=== PATIENT | male | born 1960 | race Caucasian/White ===

== ENCOUNTER → 2016-07-10 | Outpatient (CLI) | payer MEDICARE, OTHER ==
--- NOTE | 2016-07-10 17:38 | US ---
EXAMINATION TYPE: US pelvic limited DATE OF EXAM: 07/10/2016 3:35 PM COMPARISON: US in PACS CLINICAL HISTORY: 56-year-old male R35.0 Frequent Urination. Patient states frequent urination, espec ially at night. TECHNIQUE: Multiple sonographic images of the bladder were obtained. FINDINGS: No gross abnormality of the bladder. Both ureteral jets are visualized. There is normal post void cedric dder volume of 3 mL. IMPRESSION: No sonographic evidence for urinary retention.
== END | disposition home or self-care (01) ==
LOC: RADUSWWP 15:22
PROVIDERS: ATTEND Family Medicine
DX: R35.0 Frequency of micturition (principal)
CPT/HCPCS: 76857

== ENCOUNTER → 2016-10-15 | Outpatient (CLI) | payer MEDICARE, OTHER ==
--- NOTE | 2016-10-15 15:50 | US ---
EXAMINATION TYPE: US kidneys/renal and bladder DATE OF EXAM: 10/15/2016 COMPARISON: CT October 07, 2013 & US CLINICAL HISTORY: N18.9 Chronic kidney disease. EXAM MEASUREMENTS: Right Kidney: 11.2 x 5.4 x 5.2 cm Left Kidney: 11.7 x 5.6 x 5.6 cm Right Kidney: No hydronephrosis or masses seen Left Kidney: No hydronephrosis or masses seen Bladder: wnl Bilateral Jets seen: Yes There is no evidence for hydronephrosis at this point in time. No nephrolithiasis is seen. No priscila s are identified. The urinary bladder is anechoic. Bilateral ureteral jets are seen. IMPRESSION: No hydronephrosis is evident bilaterally. Unremarkable study.
== END | disposition home or self-care (01) ==
LOC: RADUSWWP 14:47
PROVIDERS: ATTEND Family Medicine
DX: N18.9 Chronic kidney disease, unspecified (principal)
CPT/HCPCS: 76770

== ENCOUNTER → 2017-10-21 | Outpatient (CLI) | payer MEDICARE, OTHER ==
[~2017-10-21] MED LIST: DOBUTamine DRIP for NUC MED 500 MG in DEXTROSE/WATER 1 250ML.BAG IV ONE
--- NOTE | 2017-10-21 13:58 | P.PN ---
Progress Note - Text Pt arrived for dobutamine stress echocardiogram. Initial echocardiogram images were very difficult to discern due to body habitus and revealed a poor EF. Recommendations were made for Lexiscan stress test instead. This was relayed to Dr. Duke's office as well as the patient. He was offered to have his Lexiscan stress test performed today however he was unable to stay for the exam. Dr. Kearney spoke to the patient about the need for Lexiscan and full echocardiogram study. He will follow up with Dr. Duke.
== END | disposition home or self-care (01) ==
LOC: RADNMMAIN 09:47
PROVIDERS: ATTEND Family Medicine
DX: R07.9 Chest pain, unspecified (principal)

== ENCOUNTER → 2017-11-06 | Outpatient (CLI) | payer MEDICARE, OTHER ==
[~2017-11-06] MED LIST changes: -DOBUTamine DRIP for NUC MED 500 MG in DEXTROSE/WATER 1 250ML.BAG IV ONE; +REGADENOSON 0.4 MG/5 ML SYRINGE IV ONE
--- NOTE | 2017-11-06 09:23 | ECHOF ---
Referral Reason:I20.0 Unstable angina R07.9 Chest pain, MEASUREMENTS -------- HEIGHT: 170.2 cm WEIGHT: 112.5 kg BP: 115/79 RVIDd: 3.7 cm (< 3.3) IVSd: 1.5 cm (0.6 - 1.1) LVIDd: 6.1 cm (3.9 - 5.3) LVPWd: 1.6 cm (0.6 - 1.1) IVSs: 1.8 cm LVIDs: 5.0 cm LVPWs: 1.9 cm LA Diam: 4.4 cm (2.7 - 3.8) LAESV Index (A-L): 31.17 ml/m Ao Diam: 3.7 cm (2.0 - 3.7) AV Cusp: 2.3 cm (1.5 - 2.6) EPSS: 2.9 cm MV E Brandon: 1.39 m/s MV DecT: 95 ms MV A Brandon: 0.39 m/s MV E/A Ratio: 3.55 MV EF SLOPE: 149.92 mm/s (70 - 150) MV EXCURSION: 1.99 cm (> 18.000) FINDINGS -------- Sinus rhythm. This was a technically adequate study. The left ventricle is mildly dilated. There is moderate concentric left ventricular hypertrophy. Overall left ventricular systolic function is severely impaired with, an EF < 20%. The right ventricle is mildly enlarged. LA is midly dilated 29-33ml/m2. The right atrium is normal in size. The aortic valve is trileaflet and appears structurally normal. Mild mitral regurgitation is present. The tricuspid valve appears structurally normal. The pulmonic valve was not well visualized. The aortic root is dilated measuring 3.7cm. Normal inferior vena cava with normal inspiratory collapse consistent with estimated right atrial pre ssure of 5 mmHg. There is no pericardial effusion. CONCLUSIONS -------- 1. Sinus rhythm. 2. This was a technically adequate study. 3. The left ventricle is mildly dilated. 4. There is moderate concentric left ventricular hypertrophy. 5. Overall left ventricular systolic function is severely impaired with, an EF < 20%. 6. The right ventricle is mildly enlarged. 7. LA is midly dilated 29-33ml/m2. 8. The right atrium is normal in size. 9. The aortic valve is trileaflet and appears structurally normal. 10. Mild mitral regurgitation is present. 11. The tricuspid valve appears structurally normal. 12. The pulmonic valve was not well visualized. 13. The aortic root is dilated measuring 3.7cm. 14. Normal inferior vena cava with normal inspiratory collapse consistent with estimated right atrial pressure of 5 mmHg. 15. There is no pericardial effusion. BARREL AND RECEIVER ALIGNER: JENA Almanzar
--- NOTE | 2017-11-06 09:46 | EST ---
EXERCISE STRESS AGE: 57 SEX: M HT: 5'7" WT: 248 PROTOCOL: Lexiscan Cardiolite Stress Test HEART RATE REST: 81 BLOOD PRESSURE REST: 149/95 MAXIMUM HEART RATE ACHIEVED: 97 MAXIMUM BLOOD PRESSURE: 176/89. INDICATION: Chest pain. CLINICAL INFORMATION: Baseline EKG shows sinus rhythm with left bundle branch block. Patient was given intravenous Lexiscan as per protocol. Did not have chest pain or diagnostic ST-segment depression. CONCLUSION: 1. Inconclusive EKG part of the stress test due to baseline EKG abnormalities. 2. Cardiolite portion of the stress test will be reported separately. MMODL / IJN: [id number] /
--- NOTE | 2017-11-06 16:53 | NM ---
EXAMINATION TYPE: NM stress lexiscan cardiolite DATE OF EXAM: 11/06/2017 COMPARISON: NONE HISTORY: Unstable angina, chest pain TECHNIQUE: After the intravenous administration of 10.6 mCi Tc 99m Sestamibi - Cardiolite resting SP ECT images acquired 45 minutes post injection. The patient received 0.4mg Lexiscan, 25.6 mCi Tc 99m Sestamibi - Stress images obtained [address] injection FINDINGS: There are large defects present including the inferior wall extending into the inferior lat eral wall as well as anterior septal wall. Significant reversibility is not identified. The ejection fraction is low at 24%. There is global hypokinesia. IMPRESSION: 1. Fixed defects along the anterior septal wall and along the inferior wall extending into the inferi or lateral wall compatible with prior infarcts. 2. Very low ejection fraction of 24%. 3. Global hypokinesia
== END | disposition home or self-care (01) ==
LOC: RADNMMAIN 07:57
PROVIDERS: ATTEND Family Medicine
DX: R94.31 Abnormal electrocardiogram [ECG] [EKG] (principal); I20.0 Unstable angina; R07.9 Chest pain, unspecified
CPT/HCPCS: 93017; 93306; 78452; A9500; J2785

== ENCOUNTER 2017-12-04 08:24 | Day surgery (SDC) | payer MEDICARE, OTHER ==
[2017-12-03 08:56] VITALS: BMI 38.8
[~2017-12-04 08:24] MED LIST changes: +ALPRAZolam 0.25 MG TAB PO PRN; +ALPRAZolam 0.5 MG TAB PO PRN; +ASPIRIN 325 MG TAB PO STA; +ATORVASTATIN 80 MG TAB PO STA; +NITROGLYCERIN SL TABS 0.4 MG TAB SUBLINGUAL PRN; -REGADENOSON 0.4 MG/5 ML SYRINGE IV ONE; +SODIUM CHLORIDE 0.9% 1,000 ML in EMPTY BAG 1 BAG IV ONE
[2017-12-04 09:12] VITALS: BP 142/92; PULSE 77; TEMP 97.7
[2017-12-04 09:41] LABS: Basophils # (A) 0.1 k/uL (0-0.2); Basophils % (A) 1 %; Eosinophils # (A) 0.4 k/uL (0-0.7); Eosinophils % (A) 3 %; HCT 49.6 % (39.0-53.0); HGB 15.5 gm/dL (13.0-17.5); Lymphocytes # (A) 1.6 k/uL (1.0-4.8); Lymphocytes % (A) 12 %; MCH 29.1 pg (25.0-35.0); MCHC 31.1 g/dL (31.0-37.0); MCV 93.4 fL (80.0-100.0); Mean Platelet Volume 6.8; Monocytes # (A) 0.7 k/uL (0-1.0); Monocytes % (A) 5 %; Neutrophils # (A) 10.3 k/uL (1.3-7.7); Neutrophils % (A) 79 %; Platelet Count 218 k/uL (150-450); RBC 5.31 m/uL (4.30-5.90); RDW 13.7 % (11.5-15.5); WBC 13.1 k/uL (3.8-10.6)
[2017-12-04 09:54] LABS: Calcium 8.9 mg/dL (8.4-10.2); Potassium 4.4 mmol/L (3.5-5.1)
== END 2017-12-04 12:40 | disposition home or self-care (01) ==
LOC: CATHCVL 08:24
PROVIDERS: ATTEND Internal Medicine Interventional Cardiology
DX: Z53.9 Procedure and treatment not carried out, unspecified reason (principal)
CPT/HCPCS: 80048; 85025

== ENCOUNTER 2017-12-05 06:18 | Day surgery (SDC) | payer MEDICARE, OTHER ==
[2017-12-05] MEDS ORDERED: HEPARIN SODIUM 1,000 UN/ML (10ML VL) ONE (07:09)
[2017-12-05] MEDS ORDERED: MIDAZOLAM 2 MG/2 ML VIAL ONE ×2 (07:09→08:13)
[2017-12-05] MEDS ORDERED: LIDOCAINE 1% INJ 10MG/ML (20 ML MDV) ONE (07:09)
[2017-12-05] MEDS ORDERED: VERAPAMIL 2.5 MG/ML 2 ML AMP ONE (07:09)
[2017-12-05 07:12] VITALS: RESP 16; TEMP 97.9
[2017-12-05] MEDS ORDERED: SODIUM CHLORIDE 0.9% 1,000 ML IV ONE (07:13)
[2017-12-05] MEDS: MIDAZOLAM 2 MG/2 ML VIAL IVP ONE ×2 (07:59→08:01)
[2017-12-05] MEDS ORDERED: LIDOCAINE 1% (PF) 10MG/ML VIAL SQ ONE (08:07)
[2017-12-05] MEDS: VERAPAMIL SYRINGE (5 MG/10 ML) INTRAARTER ONE ×2 (08:09→08:27)
[2017-12-05] MEDS ORDERED: HEPARIN SODIUM 1,000 UN/ML (10ML VL) IV ONE (08:10)
[2017-12-05] MEDS ORDERED: MIDAZOLAM 2 MG/2 ML VIAL IVP ONE (08:14)
[2017-12-05] MEDS ORDERED: IOPAMIDOL-370 125ML BTL INJ ONE (08:24)
[2017-12-05] MEDS ORDERED: RX INFO: IV CONTRAST WAS GIVEN 1 EACH MISC MISCELLANE PRN (08:35)
[2017-12-05] MEDS ORDERED: SODIUM CHLORIDE 0.9% 1,000 ML IV SCH (08:45)
--- NOTE | 2017-12-05 08:53 | LTR ---
DATE OF SERVICE: 12/05/2017 RE: Vinay Alston Dear Dr. Duke. Mr. Vinay Alston was seen in the office recently and he was experiencing chest discomfort concerning for angina and the echo shows severe cardiomyopathy with EF of 20%. Giving that, I did recommend proceeding with a coronary angiogram. The coronary angiogram showed chronic total occlusion of the right coronary artery which is known from before and patent stent in the left circumflex coronary artery. I did recommend maximized medical treatment and repeat the echocardiogram. If the EF did not improve, the patient needs to have an AICD. Thank you for allowing us to participate in his care and please do not hesitate to call if you have any question or concern. Sincerely, MD SALMA Simon / NESTOR: [id number] /
--- NOTE | 2017-12-05 09:05 | CC ---
CARDIAC CATHETERIZATION REPORT DATE OF SERVICE: 12/05/2017 PERFORMING PHYSICIAN: Torsten Kilpatrick MD. PROCEDURE PERFORMED: 1. Selective right and left coronary angiogram. 2. Left heart catheterization. 3. Left ventriculography. INDICATION: This is a pleasant 57-year-old gentleman with a past medical history significant for coronary artery disease and known chronic total occlusion of the RCA as well as stenting of the left circumflex which was performed back in 2012 and no follow up since then. Was experiencing chest discomfort as well as shortness of breath. He underwent an echocardiogram recently and that revealed severe cardiomyopathy with EF around 20%. Beside that, he underwent a myocardial perfusion imaging stress test and that showed large area of inferior infarct with юлия-infarct ischemia. Because of that, a heart catheterization was recommended. APPROACH: Right radial artery. COMPLICATION: None. LEVEL OF SEDATION: Moderate with a sedation length of 24 minutes. PROCEDURE DESCRIPTION: After obtaining an informed consent, the patient was brought to the cardiac lab systems analyst. The right radial artery was cannulated using micropuncture technique, the micropuncture wire passed easily. Then I placed a 5-Armenian sheath in the right radial artery. After that, I gave the patient 2 mg of verapamil IA and 10,000 units of heparin IV. After that, I did selective right and left coronary angiogram using JR4 and JL3.5 catheters. Left heart catheterization was performed using 5-Armenian pigtail catheter and the left ventriculography was performed using also 5-Armenian pigtail catheter. The procedure was completed without any complication. SELECTIVE CORONARY ANGIOGRAM: 1. The right coronary artery is chronically occluded in the proximal portion and fills by collaterals from the left coronary system. 2. The left main has mild disease only in the range of 20%-30%. Calcified left main, though. It bifurcates into left circumflex, ramus intermedius, and left anterior descending artery. 3. The left circumflex is a large caliber vessel. It is a nondominant vessel. The proximal circumflex appeared to have mild disease only. The mid circ is stented and the stent is patent. The circ distally became a small caliber vessel and appeared to have mild disease only. 4. The ramus intermedius is a large caliber vessel with mild disease only. 5. The LAD is a large caliber vessel as well. The LAD has mild to moderate diffuse disease only. In the proximal portion, it gives rise into a large diagonal branch which appeared to have mild disease only as well. Extensive [id number] collaterals were seen through the septal soft metals hand engraver branches. HEMODYNAMICS: The left ventricular end-diastolic pressure was 12 mmHg and mild gradient of 8 mmHg was identified across the aortic valve. Left ventriculography was performed in the RUIZ projection and using a power injection, the left ventricular systolic function is severely impaired with EF around 20% with global hypokinesia and basal inferior akinesia. CONCLUSION: 1. Chronic total occlusion of the right coronary artery which is known from before. 2. Mild disease involving the left main coronary artery. 3. Patent stent in the mid left circumflex coronary artery. 4. Mild disease involving the ramus intermedius. 5. Mild to moderate disease involving the left anterior descending artery as well as a diagonal branch of the left anterior descending artery. 6. Normal left ventricular end-diastolic pressure. 7. Severe cardiomyopathy with ejection fraction of 20%. There was global hypokinesia with basal inferior akinesia. POSTPROCEDURE MANAGEMENT: 1. Maximize medical treatment. 2. If the EF did not improve in spite of that, patient needs to have an AICD. MMODL / IJN: [id number] /
[2017-12-05 12:50] VITALS: BP 145/84; PULSE 84
== END 2017-12-05 13:43 | disposition home or self-care (01) ==
LOC: CATHCVL 06:18
PROVIDERS: ATTEND Internal Medicine Interventional Cardiology
DX: I25.10 Atherosclerotic heart disease of native coronary artery without angina pectoris (principal); I25.82 Chronic total occlusion of coronary artery; I25.5 Ischemic cardiomyopathy; I10 Essential (primary) hypertension; E78.5 Hyperlipidemia, unspecified; F17.210 Nicotine dependence, cigarettes, uncomplicated; E78.00 Pure hypercholesterolemia, unspecified; Z79.82 Long term (current) use of aspirin; Z79.899 Other long term (current) drug therapy; Z95.5 Presence of coronary angioplasty implant and graft
CPT/HCPCS: 93458; C1894; J2250; J1644; J2001; Q9967

== ENCOUNTER 2018-05-21 13:09 | Inpatient (IN) | payer MEDICARE, OTHER ==
[2018-05-21 16:26] VITALS: BMI 38.0
[2018-05-21] MEDS ORDERED: HEPARIN SODIUM,PORCINE 5,000 UNIT/ML 1 ML VIAL IV PRN (16:58)
[2018-05-21] MEDS ORDERED: NITROGLYCERIN SL TABS 0.4 MG TAB SUBLINGUAL PRN (17:03)
[2018-05-21] MEDS ORDERED: HYDROcodone/APAP 10-325MG 1 EACH TAB PO PRN (17:05)
[2018-05-21] MEDS ORDERED: ALPRAZolam 0.5 MG TAB PO PRN (17:11)
[2018-05-21] MEDS ORDERED: HEPARIN SODIUM,PORCINE 5,000 UNIT/ML 1 ML VIAL IV ONE (17:15)
[2018-05-21 17:22] LABS: Basophils # (A) 0.1 k/uL (0-0.2); Basophils % (A) 1 %; Eosinophils # (A) 0.4 k/uL (0-0.7); Eosinophils % (A) 4 %; HGB 15.8 gm/dL (13.0-17.5); Lymphocytes # (A) 2.3 k/uL (1.0-4.8); Lymphocytes % (A) 19 %; MCH 30.2 pg (25.0-35.0); MCHC 32.9 g/dL (31.0-37.0); MCV 91.7 fL (80.0-100.0); Monocytes # (A) 0.9 k/uL (0-1.0); Monocytes % (A) 7 %; Neutrophils # (A) 8.3 k/uL (1.3-7.7); Neutrophils % (A) 68 %; Platelet Count 222 k/uL (150-450); RBC 5.24 m/uL (4.30-5.90); RDW 13.6 % (11.5-15.5); WBC 12.2 k/uL (3.8-10.6)
[2018-05-21 17:30] LABS: INR 0.9 (<1.2); Partial Thromboplastin Time 24.8 sec (22.0-30.0); Prothrombin Time 10.1 sec (9.0-12.0)
[2018-05-21] MEDS: CARVEDILOL 6.25 MG TAB PO SCH (18:15)
[2018-05-21] MEDS: SODIUM CHLORIDE 0.9% 1,000 ML IV SCH (18:15)
[2018-05-21] MEDS: NITROGLYCERIN OINT 1 INCH/GM PACKET TOPICAL SCH (18:15)
[2018-05-21] MEDS: HEPARIN SOD,PORK IN 0.45% NACL 25,000 UNIT in 0.45% NACL 1 250ML.BAG IV SCH (18:19)
[2018-05-21] MEDS: ATORVASTATIN 80 MG TAB PO SCH (21:00)
[2018-05-21] MEDS: FAMOTIDINE 20 MG TAB PO SCH (21:00)
[2018-05-21] MEDS: IPRATROPIUM-ALBUTEROL 3 ML NEB INHALATION SCH (22:36)
[2018-05-21] MEDS: BUDESONIDE 0.5 MG/2 ML NEBU INHALATION SCH (22:36)
[2018-05-22] MEDS: NITROGLYCERIN OINT 1 INCH/GM PACKET TOPICAL SCH ×5 (00:40→22:23)
[2018-05-22] MEDS: IPRATROPIUM-ALBUTEROL 3 ML NEB INHALATION SCH ×4 (00:55→19:14)
[2018-05-22 06:15] LABS: Basophils # (A) 0.1 k/uL (0-0.2); Basophils % (A) 1 %; Eosinophils # (A) 0.5 k/uL (0-0.7); Eosinophils % (A) 4 %; HCT 45.8 % (39.0-53.0); HGB 15.1 gm/dL (13.0-17.5); Lymphocytes # (A) 2.8 k/uL (1.0-4.8); Lymphocytes % (A) 22 %; MCH 30.1 pg (25.0-35.0); MCHC 32.9 g/dL (31.0-37.0); MCV 91.5 fL (80.0-100.0); Mean Platelet Volume 6.8; Monocytes # (A) 0.9 k/uL (0-1.0); Monocytes % (A) 7 %; Neutrophils # (A) 8.2 k/uL (1.3-7.7); Neutrophils % (A) 65 %; Platelet Count 238 k/uL (150-450); RDW 13.5 % (11.5-15.5); WBC 12.8 k/uL (3.8-10.6)
[2018-05-22] MEDS: LOSARTAN 50 MG TAB PO SCH (06:41)
[2018-05-22] MEDS: CARVEDILOL 6.25 MG TAB PO SCH ×2 (06:41→16:29)
[2018-05-22] MEDS: SODIUM CHLORIDE 0.9% 1,000 ML IV SCH ×2 (06:41→19:27)
[2018-05-22] MEDS: FAMOTIDINE 20 MG TAB PO SCH ×2 (06:41→19:41)
[2018-05-22] MEDS: buPROPion XL 150 MG TAB.ER.24H PO SCH (06:46)
[2018-05-22] MEDS: BUDESONIDE 0.5 MG/2 ML NEBU INHALATION SCH ×2 (07:33→19:14)
[2018-05-22] MEDS ORDERED: ASPIRIN 81 MG PO SCH (09:00)
[2018-05-22] MEDS ORDERED: LIDOCAINE 1% INJ 10MG/ML (20 ML MDV) ONE (12:16)
[2018-05-22] MEDS ORDERED: IV FLUID CONTINUATION 250 ML IV ONE (12:27)
[2018-05-22] MEDS ORDERED: VERAPAMIL 2.5 MG/ML 2 ML AMP ONE (12:35)
[2018-05-22] MEDS ORDERED: LIDOCAINE 1% INJ 10MG/ML (20 ML MDV) SQ ONE (12:48)
[2018-05-22] MEDS ORDERED: BIVALIRUDIN BOLUS 250 MG/50 ML IV ONE (12:51)
[2018-05-22] MEDS ORDERED: MIDAZOLAM 2 MG/2 ML VIAL IV ONE (12:51)
[2018-05-22] MEDS ORDERED: BIVALIRUDIN 250 MG in SODIUM CHLORIDE 0.9% 40 ML IV ONE (12:53)
[2018-05-22] MEDS: NITROGLYCERIN 1000MCG/10ML SYRINGE INTRACORON ONE ×2 (13:03→13:13)
[2018-05-22] MEDS ORDERED: TICAGRELOR 90 MG TAB ONE (13:06)
[2018-05-22] MEDS ORDERED: TICAGRELOR 90 MG TAB PO ONE (13:08)
[2018-05-22] MEDS ORDERED: ZOLPIDEM 5 MG TAB PO PRN (13:17)
[2018-05-22] MEDS ORDERED: MAG HYDROX/AL HYDROX/SIMETH 30 ML CUP PO PRN (13:17)
[2018-05-22] MEDS ORDERED: IOPAMIDOL-370 100ML BTL INJ ONE (13:17)
[2018-05-22] MEDS ORDERED: ATROPINE SULFATE 0.1 MG/ML 10ML SYRINGE IV PRN (13:17)
[2018-05-22] MEDS ORDERED: NITROGLYCERIN SL TABS 0.4 MG TAB SUBLINGUAL PRN (13:17)
[2018-05-22] MEDS ORDERED: RX INFO: IV CONTRAST WAS GIVEN 1 EACH MISC MISCELLANE PRN (13:17)
[2018-05-22] MEDS ORDERED: SODIUM CHLORIDE 0.9% 1,000 ML IV SCH (13:30)
[2018-05-22 13:41] LABS: Calcium 8.5 mg/dL (8.4-10.2)
--- NOTE | 2018-05-22 14:15 | PTCA ---
PERCUTANEOUSTRANS CORORONARY ANGIOGRAPHY DATE OF SERVICE: 05/22/2018 PERFORMING PHYSICIAN: Torsten Kilpatrick MD, gameroom technician. PROCEDURE PERFORMED: Successful stenting of the mid left circumflex using 2.0 x 18 mm Adilson drug-eluting stent which was post dilated using 225 mm NC balloon with good angiographic results and reduction of stenosis from 99% to 10%. INDICATION: This is a pleasant 57-year-old gentleman with known history of coronary artery disease and prior stenting of the left circumflex coronary artery who presented to [facility] with chest discomfort and ruled in for acute non ST elevation myocardial infarction. He underwent a heart catheterization over there and that revealed critical disease involving the left circumflex. Because of that, a PCI was advised. APPROACH: Right common femoral artery. COMPLICATION: None. LEVEL OF SEDATION: Moderate with sedation length of 30 minutes. PROCEDURE DESCRIPTION: After obtaining an informed consent, the patient was brought to cardiac labor law professor. The right common femoral artery was cannulated using micropuncture technique and a micropuncture wire passed easily. Then I placed a 6-Cook Islander sheath in the right common femoral artery. After that, I did start anticoagulation using Angiomax. Subsequently I did engage the left main using an XP35 guide. A whisper wire was used to wire the left circumflex and the wire was directed to the OM to OM 1 of the left circumflex. After that I did balloon angioplasty using 2.0 x 12 mm balloon before I deployed 2.0 x 18 mm Viola drug-eluting stent where the stent was positioned under fluoroscopy guidance and deployed under its nominal pressure. The following angiogram showed some on the stented segment. Because of that, I decided to post dilate that using NC balloon which I did using 225 x 15 mm NC balloon which was inflated under 20 atmospheres for 20 seconds with the following angiogram showed good angiographic results and the procedure was completed without any complication. POSTPROCEDURE MANAGEMENT: 1. Dual anti-platelet therapy. 2. Risk factors modifications. 3. Follow up with the patient. MMODL / IJN: [id number] /
--- NOTE | 2018-05-22 14:51 | LTR ---
DATE OF SERVICE: May 22, 2018. Dear Dr. Duke: MrSabra Alston underwent successful stenting of the left circumflex here at [facility]. I want to thank you for allowing me to participate in his care and please do not hesitate to call for any questions or concerns. Sincerely, MMODL / IJN: [id number] /
--- NOTE | 2018-05-22 15:15 | PN ---
PROGRESS NOTE DATE OF SERVICE: 05/22/2018 CHIEF COMPLAINT: Unstable angina pectoris. HISTORY OF PRESENT ILLNESS: This gentleman is doing fairly well and awaits his procedure today. He is going for angioplasty. He has also been told that it is recommended that he undergo installation of defibrillator. PHYSICAL EXAM: Color is good. Vital signs normal. CHEST: Clear but breath sounds are poor due to his COPD. Cardiac exam is normal. Abdomen is soft and slightly protuberant. EXTREMITIES: Normal. IMPRESSION: 1. Unstable angina pectoris. 2. Coronary artery disease. 3. Chronic obstructive pulmonary disease. 4. Atherosclerotic cardiomyopathy. PLAN: Stenting today. Reassess afterwards as to when he will be able to be discharged. MMODL / IJN: [id number] /
[2018-05-22] MEDS: HYDROCHLOROTHIAZIDE 25 MG TAB PO SCH (16:29)
[2018-05-22] MEDS: HEPARIN SOD,PORK IN 0.45% NACL 25,000 UNIT in 0.45% NACL 1 250ML.BAG IV SCH (17:10)
--- NOTE | 2018-05-22 18:42 | HP ---
HISTORY AND PHYSICAL CHIEF COMPLAINT: Chest pain. HISTORY OF PRESENT ILLNESS: This gentleman is transferred from [facility] where he was admitted with unstable angina. He was brought here for cardiac cath and further interventional study. REVIEW OF SYSTEMS: He is presently comfortable without neurologic problems, chest pain, shortness of breath, palpitations, etc. Past medical history, family history, personal and social history are all to be found in his admitting and discharge documents from [facility] as well as admission here. PHYSICAL EXAMINATION: Blood pressure is 142/90 with a pulse of 83 and regular, respirations 35. He is afebrile. In general, he appeared to be older than the stated age. Skin was dry. Head, ears, eyes, nose, mouth, and throat were normal and the chest demonstrated decreased breath sounds with increased AP diameter. Cardiac exam demonstrates sinus rhythm. There is an S4. Abdomen is protuberant, soft, nontender without visceromegaly or masses. Bowel sounds are present. Extremities: Normal. Neurologically he is intact to the hospital. He was admitted to the hospital with diagnoses: 1. Unstable angina pectoris. 2. Coronary artery disease. 3. Nicotine abuse. 4. Chronic obstructive pulmonary disease. 5. Renal failure. PLAN: IV fluids and cardiac cath with stenting and possibly implantation of a defibrillator eventually. MMODL / IJN: [id number] /
[2018-05-22] MEDS: TICAGRELOR 90 MG TAB PO SCH (19:41)
[2018-05-22] MEDS: ATORVASTATIN 80 MG TAB PO SCH (19:41)
[2018-05-23] MEDS: IPRATROPIUM-ALBUTEROL 3 ML NEB INHALATION SCH ×2 (00:35→07:49)
[2018-05-23] MEDS: NITROGLYCERIN OINT 1 INCH/GM PACKET TOPICAL SCH (04:19)
[2018-05-23] MEDS: CARVEDILOL 6.25 MG TAB PO SCH (06:33)
[2018-05-23 07:17] LABS: Basophils # (A) 0.1 k/uL (0-0.2); Basophils % (A) 1 %; Eosinophils # (A) 0.5 k/uL (0-0.7); Eosinophils % (A) 4 %; HCT 45.9 % (39.0-53.0); HGB 15.5 gm/dL (13.0-17.5); Lymphocytes # (A) 2.2 k/uL (1.0-4.8); Lymphocytes % (A) 17 %; MCH 30.6 pg (25.0-35.0); MCHC 33.9 g/dL (31.0-37.0); MCV 90.3 fL (80.0-100.0); Mean Platelet Volume 6.9; Monocytes # (A) 1.1 k/uL (0-1.0); Monocytes % (A) 9 %; Neutrophils # (A) 9.1 k/uL (1.3-7.7); Neutrophils % (A) 69 %; Platelet Count 222 k/uL (150-450); RBC 5.08 m/uL (4.30-5.90); RDW 13.5 % (11.5-15.5); WBC 13.3 k/uL (3.8-10.6)
[2018-05-23] MEDS: BUDESONIDE 0.5 MG/2 ML NEBU INHALATION SCH (07:49)
[2018-05-23] MEDS: HYDROCHLOROTHIAZIDE 25 MG TAB PO SCH (08:25)
[2018-05-23] MEDS: LOSARTAN 50 MG TAB PO SCH (08:25)
[2018-05-23] MEDS: FAMOTIDINE 20 MG TAB PO SCH (08:26)
[2018-05-23] MEDS: buPROPion XL 150 MG TAB.ER.24H PO SCH (08:26)
[2018-05-23] MEDS: TICAGRELOR 90 MG TAB PO SCH (08:26)
[2018-05-23 08:32] VITALS: BP 131/80; PULSE 77; RESP 18; TEMP 98
[2018-05-23] MEDS: SODIUM CHLORIDE 0.9% 1,000 ML IV SCH (08:32)
[2018-05-23] MEDS ORDERED: ASPIRIN 81 MG PO SCH (09:00)
--- NOTE | 2018-05-23 10:16 | P.PN ---
Subjective Progress Note Date: 05/23/18 This is a pleasant 57-year-old gentleman with known history of coronary artery disease and prior circumflex stenting who presented to [facility] with chest discomfort, he ruled in for non-ST elevation SC. Patient underwent angioplasty with successful stenting of the mid left circumflex by Dr. Arce. He was seen and examined this morning, denied any chest pain or difficulty in breathing. Hemodynamically stable. Creatinine this morning 1.5, platelet count 222. Objective - Vital Signs Vital signs: Vital Signs Temp 98 F 05/23/18 08:28 Pulse 77 05/23/18 08:28 Resp 18 05/23/18 08:28 BP 131/80 05/23/18 08:28 Pulse Ox 96 05/23/18 08:28 Intake & Output 05/22/18 05/23/18 05/23/18 18:59 06:59 18:59 Intake Total 651 240 Output Total 600 Balance 651 -360 Weight 110.1 kg 110.5 kg Intake: IV 186 Intake, IV Titration 225 Amount Sodium Chloride 0.9% 1, 150 000 ml @ 75 mls/hr IV . [id number] JOSE Rx#:[id number] Sodium Chloride 0.9% 1, 75 000 ml @ 75 mls/hr IV . [id number] JOSE Rx#:[id number] Oral 240 240 Output: Urine 600 Other: Voiding Method Urinal Toilet Urinal # Voids 1 1 - Exam PHYSICAL EXAMINATION: GENERAL: 57-year-old gentleman in no acute distress at the time of my examination HEENT: Head is atraumatic, normocephalic. Pupils equal, round. Sclera anicteric. Conjunctiva are clear. Mucous membranes of the mouth are moist. Neck is supple. There is no elevated jugular venous pressure. No carotid bruit is heard. HEART EXAMINATION: Heart S1, S2 normal. No murmur or gallop heard. CHEST EXAMINATION: Lungs are clear to auscultation and precussion. No chest wall tenderness is noted on palpation or with deep breathing. ABDOMEN: Soft, nontender. Bowel sounds are heard. No organomegaly noted. EXTREMITIES: 2+ peripheral pulses with no evidence of peripheral edema and no calf tenderness noted. Right groin soft, no evidence of any hematoma. NEUROLOGIC patient is awake, alert and oriented 3 . . - Labs CBC & Chem 7: 02/16/19 05:36 05/23/18 05:36 Labs: Abnormal Lab Results - Last 24 Hours (Table) 05/22/18 05/23/18 05/23/18 Range/Units 12:47 05:36 05:36 WBC 13.3 H (3.8-10.6) k/uL Neutrophils # 9.1 H (1.3-7.7) k/uL Monocytes # 1.1 H (0-1.0) k/uL BUN 26 H (9-20) mg/dL Creatinine 1.47 H 1.52 H (0.66-1.25) mg/dL Assessment and Plan Plan: Assessment and plan #1 non-Q-wave SC, status post angioplasty and stenting of the circumflex artery #2 known history of coronary artery disease with prior PCI of the circumflex #3 hypertension #4 hyperlipidemia #5 COPD #6 acute on chronic renal failure #7 nicotine dependence Plan From cardiology's perspective, patient may be able to be discharged home today. We'll make him a follow-up appointment to see Dr. Arce in the office post discharge. Patient will be discharged home on aspirin 81 mg daily, Lipitor 80 mg daily, Coreg 6.25 mg twice a day, losartan 100 mg daily, Brilinta 90 mg one tablet by mouth twice a day and sublingual nitroglycerin as needed for chest pain. DNP note has been reviewed, I agree with a documented findings and plan of care. Patient was seen and examined.
--- NOTE | 2018-05-23 15:43 | DS ---
DISCHARGE SUMMARY CHIEF COMPLAINT: Chest pain. HISTORY OF PRESENT ILLNESS AND PHYSICAL EXAM: Details of this man's history and physical can be found in the initial workup. LABORATORY STUDIES: While he was in the hospital, he had laboratory studies, details of which can be found laboratory section of his chart. COURSE IN HOSPITAL: After admission , he was placed on bedrest, started on intravenous fluids and taken for angioplasty. He did well postoperatively and it was felt that he could go home on the . He will follow up in the office in several days. He is scheduled to come back at a later date for the implanted defibrillator. FINAL DIAGNOSIS: 1. Unstable angina pectoris. 2. Coronary artery disease. 3. Atherosclerotic cardiomyopathy. 4. Chronic obstructive pulmonary disease. OPERATIONS: Cardiac cath and stenting. CONSULTATIONS: Cardiology. He is improved. MMAARONL / LETAN: [id number] /
--- NOTE | 2018-05-25 16:55 | CDI ---
Documentation Clarification Form Date: 05/25/2018 3:24:00 PM From: Carmela Mcdonald Rowena Ross, Lyft Driver Hours-8:30 am & 5 pm M-F Admit Date: 05/21/2018 3:54:00 PM Patient Name: Vinay Alston Visit Number: [id number] Discharge Date: 05/23/2018 11:28:00 AM ATTENTION: The Clinical Documentation Specialists (CDI) and [facility] Coding Staff appreciate your assistance in clarifying documentation. Please respond to the clarification below the line at the bottom and electronically sign. The CDI & [facility] Coding staff will review the response and follow-up if needed. Please note: Queries are made part of the Legal Health Record. If you have any questions, please contact the author of this message via ITS. Dr. Cory Duke Non- ST elevation AR is documented in the [facility] H&P, [facility] PNs, Procedure note Patient History/Risk Factors: HTN, CAD, CMP Troponin: 7.6, 5.9, 4.5 Treatment: PTCA w/ MARISSA, Heparin In order to capture the severity of condition and necessary documentation specificity, please clarify: NSTEMI ruled in NSTEMI ruled out Unable to determine Other Condition, please specify MTDD
--- NOTE | 2018-05-25 17:07 | CDI ---
Documentation Clarification Form Date: 05/25/2018 3:58:00 PM From: Carmela Mcdonald Rowena Ross, Seat Joiner [employer] Hours-8:30 am & 5 pm M-F Admit Date: 05/21/2018 3:54:00 PM Patient Name: Vinay Alston Visit Number: [id number] Discharge Date: 05/23/2018 11:28:00 AM ATTENTION: The Clinical Documentation Specialists (CDI) and [facility] Coding Staff appreciate your assistance in clarifying documentation. Please respond to the clarification below the line at the bottom and electronically sign. The CDI & [facility] Coding staff will review the response and follow-up if needed. Please note: Queries are made part of the Legal Health Record. If you have any questions, please contact the author of this message via ITS. Dr. Cory Duke Systolic CHF is documented in the [facility] H&P History/Risk Factors: HTN, CAD, CMP Clinical Indicators: VS/Pulse OX: BNP: 1,946 Echocardiogram Results: EF 25-30% Treatment: Lasix In your professional opinion, can you please clarify the acuity of CHF if known? Systolic Heart Failure: Acute Chronic Acute on Chronic Unable to Determine Other, please specify MTDD
--- NOTE | 2018-05-27 08:07 | MISC ---
MISCELLANOUS REPORT NSTEMI is ruled in. Heart failure is chronic. MMODL / IJN: [id number] /
== END 2018-05-23 11:28 | disposition home or self-care (01) | DRG 247 ==
LOC: 3SCARD 15:54
PROVIDERS: ADMIT Family Medicine; ATTEND Family Medicine
PROC: 027034Z Dilation of Coronary Artery, One Artery with Drug-eluting Intraluminal Device, Percutaneous Approach (ICD-10-PCS; principal; 2018-05-22 12:00)
DX: I21.4 Non-ST elevation (NSTEMI) myocardial infarction (principal); N17.9 Acute kidney failure, unspecified; I13.0 Hypertensive heart and chronic kidney disease with heart failure and stage 1 through stage 4 chronic kidney disease, or unspecified chronic kidney disease; I50.22 Chronic systolic (congestive) heart failure; N18.3 Chronic kidney disease, stage 3 (moderate); J44.9 Chronic obstructive pulmonary disease, unspecified; E78.5 Hyperlipidemia, unspecified; F17.210 Nicotine dependence, cigarettes, uncomplicated; I25.5 Ischemic cardiomyopathy; G47.33 Obstructive sleep apnea (adult) (pediatric); E66.9 Obesity, unspecified; I25.10 Atherosclerotic heart disease of native coronary artery without angina pectoris; Z68.38 Body mass index [BMI] 38.0-38.9, adult; Z79.899 Other long term (current) drug therapy; Z95.5 Presence of coronary angioplasty implant and graft; Z79.82 Long term (current) use of aspirin
CPT/HCPCS: 80048; 82565; 85025; 85610; 85730; 94640

== ENCOUNTER 2018-05-24 11:23 | Emergency (ER) | payer MEDICARE, OTHER ==
[2018-05-24 11:49] VITALS: RESP 16; TEMP 97.7
[2018-05-24] MEDS ORDERED: RANOLAZINE 500 MG TAB.ER.12H PO STA (12:20)
--- NOTE | 2018-05-24 12:27 | ED ---
General Adult HPI - General Chief complaint: Recheck/Abnormal Lab/Rx Stated complaint: Medication problem Time Seen by Provider: 05/24/18 11:59 Source: patient, RN notes reviewed Mode of arrival: wheelchair Limitations: no limitations - History of Present Illness Initial comments: Patient is a pleasant 57-year-old male presenting to the emergency department with questions regarding his medication. Patient was recently in the hospital, just discharged. Patient states this morning he accidentally took one of his hydralazine that he was supposed to stop. Patient also states his Ranexa prescription he cannot find. Patient states he is supposed take 250 mg twice daily. Patient does have an appointment with his doctor tomorrow and can get it refilled at that time. Patient denies any new symptoms at this point. Patient denies any chest pain or weakness. Patient states he does get somewhat short of breath with exertion however this is chronic and unchanged. Patient states he has an ejection fraction of 20%. Patient states it is not necessary to do any blood work and he refuses at this time. Patient is agreeable to have blood pressure rechecked. Patient states he does feel fine. Patient adds the main reason that he is here is because he wants to have a visiting nurse come see him. He states this was offered to him at discharge and he regrets refusing that at that time. - Related Data Home Medications Medication Instructions Recorded Confirmed Albuterol Inhaler [Ventolin Hfa 1 - 2 puff INHALATION BID PRN 12/03/17 12/04/17 Inhaler] Aspirin [Adult Low Dose Aspirin EC] 81 mg PO QAM 12/03/17 12/05/17 Atorvastatin Calcium [Lipitor] 80 mg PO QAM 12/03/17 12/05/17 Metoprolol Tartrate 25 mg PO BID 12/03/17 12/05/17 Ranitidine HCl 150 mg PO BID 12/03/17 12/05/17 Ranolazine [Ranexa] 250 mg PO BID 12/03/17 12/05/17 Sacubitril/Valsartan [Entresto 49 1 each PO BID 12/03/17 12/05/17 mg-51 mg Tablet] buPROPion HCL [Wellbutrin XL] 150 mg PO DAILY 12/03/17 12/05/17 Previous Rx's Medication Instructions Recorded Carvedilol [Coreg] 6.25 mg PO BID-W/MEALS #60 tab 05/23/18 Nitroglycerin Sl Tabs [Nitrostat] 0.4 mg SUBLINGUAL Q5M PRN #25 tab 05/23/18 Ticagrelor [Brilinta] 90 mg PO BID #60 tab 05/23/18 Allergies Allergy/AdvReac Type Severity Reaction Status Date / Time No Known Allergies Allergy Verified 05/24/18 11:49 Review of Systems ROS Statement: Those systems with pertinent positive or pertinent negative responses have been documented in the HPI. ROS Other: All systems not noted in ROS Statement are negative. Constitutional: Denies: fever Eyes: Denies: eye pain ENT: Denies: ear pain Respiratory: Reports: as per HPI Cardiovascular: Reports: as per HPI Endocrine: Denies: polydipsia Gastrointestinal: Denies: vomiting Genitourinary: Denies: dysuria Musculoskeletal: Denies: back pain Skin: Denies: rash Neurological: Denies: weakness Past Medical History Past Medical History: Chest Pain / Angina, COPD, CVA/TIA, Hyperlipidemia, Hypertension, Myocardial Infarction ([place]), Osteoarthritis (OA), Skin Disorder, Sleep Apnea/CPAP/BIPAP Additional Past Medical History / Comment(s): TIA 2007(diff spelling words since ), no cpap used eczema, decreased kidney function in past-now resolved per pt Last Myocardial Infarction Date:: 2012 History of Any Multi-Drug Resistant Organisms: None Reported Past Surgical History: Heart Catheterization With Stent, Orthopedic Surgery Additional Past Surgical History / Comment(s): one cardiac stent, rotator cuff left shoulder, edie carpal tunnel, Past Anesthesia/Blood Transfusion Reactions: No Reported Reaction Date of Last Stent Placement:: 2012 Past Psychological History: Bipolar Smoking Status: Former smoker Past Alcohol Use History: None Reported Past Drug Use History: Marijuana - Past Family History Father Family Medical History: Cancer Additional Family Medical History / Comment(s): colon,pancreatic General Exam Limitations: no limitations General appearance: alert, in no apparent distress Head exam: Present: atraumatic Eye exam: Present: normal appearance Neck exam: Present: normal inspection Respiratory exam: Present: normal lung sounds bilaterally Cardiovascular Exam: Present: regular rate, normal rhythm GI/Abdominal exam: Present: soft. Absent: tenderness Extremities exam: Present: normal inspection. Absent: pedal edema, calf tenderness Neurological exam: Present: alert Psychiatric exam: Present: normal affect, normal mood Skin exam: Present: normal color Course Vital Signs 05/24/18 11:47 Temperature 97.7 F Pulse Rate 71 Respiratory 16 Rate Blood Pressure 144/91 O2 Sat by Pulse 97 Oximetry - Reevaluation(s) Reevaluation #1: 05/24/18 12:25 workers compensation coordinator is attempting to have somebody contact the patient regarding setting up visiting nurse. Disposition Clinical Impression: Encounter for medication adjustment Disposition: HOME SELF-CARE Condition: Stable Additional Instructions: Please follow-up to tomorrow as planned. Please also follow-up with brush and broom clipper next day or 2 for recheck. Return for chest pain, shortness of breath, dizziness, worsening symptoms or other concerns. Is patient prescribed a controlled substance at d/c from ED?: No Referrals: Cory Duke MD [Primary Care Provider] - 1-2 days Time of Disposition: 12:26
[2018-05-24 12:50] VITALS: BP 121/92; PULSE 68
== END 2018-05-24 13:44 | disposition home or self-care (01) ==
LOC: EC 11:23
DX: Z51.81 Encounter for therapeutic drug level monitoring (principal); J44.9 Chronic obstructive pulmonary disease, unspecified; E78.5 Hyperlipidemia, unspecified; I10 Essential (primary) hypertension; I25.2 Old myocardial infarction; G47.30 Sleep apnea, unspecified; F31.9 Bipolar disorder, unspecified; Z79.82 Long term (current) use of aspirin; Z79.899 Other long term (current) drug therapy; Z99.89 Dependence on other enabling machines and devices; Z87.891 Personal history of nicotine dependence; Z86.73 Personal history of transient ischemic attack (TIA), and cerebral infarction without residual deficits; Z95.5 Presence of coronary angioplasty implant and graft
CPT/HCPCS: 99283

== ENCOUNTER → 2018-07-13 | Outpatient (CLI) | payer MEDICARE, OTHER ==
[2018-07-13 16:36] LABS: Calcium 9.4 mg/dL (8.7-10.3); Magnesium 2.2 mg/dL (1.5-2.4); Potassium 4.4 mmol/L (3.5-5.5)
== END | disposition home or self-care (01) ==
LOC: LABWHC1 10:13
PROVIDERS: ATTEND Nurse Practitioner Adult Health
DX: I10 Essential (primary) hypertension (principal)
CPT/HCPCS: 36415; 80048; 83735

== ENCOUNTER → 2018-08-03 | Outpatient (CLI) | payer MEDICARE ==
[2018-08-03 16:44] LABS: Anion Gap 7.4 mmol/L (4.00-12.00); Calcium 9.2 mg/dL (8.7-10.3); Carbon Dioxide 25.6 mmol/L (21.6-31.8); Potassium 4.6 mmol/L (3.5-5.5)
== END | disposition home or self-care (01) ==
LOC: LABWHC1 10:49
PROVIDERS: ATTEND Nurse Practitioner Adult Health
DX: I10 Essential (primary) hypertension (principal)
CPT/HCPCS: 36415; 80048

== ENCOUNTER → 2018-11-19 | Outpatient (CLI) | payer MEDICARE ==
[2018-11-19 14:18] LABS: Total Volume 24 Hour,Urine 1725 mls (800-1800)
[2018-11-19 14:40] LABS: Total Protein 24 Hour,Urine 224 mg/24hr (42.0-225.0)
--- NOTE | 2018-11-20 08:25 | US ---
EXAMINATION TYPE: US kidneys/renal and bladder DATE OF EXAM: 11/19/2018 COMPARISON: NONE CLINICAL HISTORY: N18.9 CKD. CKD EXAM MEASUREMENTS: Right Kidney: 10.0 x 5.0 x 4.9 cm Left Kidney: 11.3 x 5.5 x 4.7 cm Right Kidney: No evidence of hydronephrosis or mass Left Kidney: No evidence of hydronephrosis or mass Bladder: appears wnl Bilateral Jets seen: yes There is no evidence for hydronephrosis at this point in time. No nephrolithiasis is seen. No priscila s are identified. The urinary bladder is anechoic. Bilateral ureteral jets are seen. Cortical medul sheldon differentiation is maintained. No gross cortical renal thinning. IMPRESSION: No hydronephrosis or nephrolithiasis. No current sonographic sequela of medical renal disease.
== END | disposition home or self-care (01) ==
LOC: RADUSWWP 08:37
PROVIDERS: ATTEND Family Medicine
DX: N18.9 Chronic kidney disease, unspecified (principal)
CPT/HCPCS: 76770; 81050; 82575; 84156

== ENCOUNTER → 2019-02-22 | Outpatient (CLI) | payer MEDICARE ==
--- NOTE | 2019-02-23 15:30 | CT ---
EXAMINATION TYPE: CT angio tho/abd W Run Off DATE OF EXAM: 02/22/2019 COMPARISON: CT abdomen pelvis dated 10/07/2013 HISTORY: lack of right extremity pedal pulse, left leg swelling. Femoral occlusion. CT DLP: 3313.7 mGycm Automated exposure control for dose reduction was used. TECHNIQUE: CTA of the thorax and abdomen with runoff was performed per department protocol. 3-D refor matted images of the vasculature were created on a separate workstation and submitted for review. FINDINGS: VASCULATURE: The aortic root is within normal limits measuring 3.6 cm as is the ascending thoracic aorta measuring 3.7 cm. No aneurysmal dilatation of the aortic arch and origin descending thoracic aorta as the desc ending thoracic aorta measures 2.8 cm. No dissection is seen of the thoracic aorta. The upper abdomin al aorta is within normal limits measuring 2.3 cm. There is patency of the ostia of the celiac axis, superior mesenteric artery, renal arteries, and inferior mesenteric artery. There is mild calcific an d noncalcific atheromatous plaquing of the abdominal aorta and common iliac arteries. The common leodan c arteries are within normal limits measuring 1.1 cm on the right and 1.0 cm on the left. No aneurysm al dilatation of the external iliac arteries. The femoral arteries both display moderate calcific and noncalcific atheromatous plaquing but appear patent. There is multifocal less than 50% stenosis. However on the right in the mid femoral artery ap proximately 20 cm from the medial tibial plateau there is complete occlusion of the right femoral art clay. There is reconstitution more distally towards the popliteal artery located approximately 15 cm f rom the tibial plateau. Within the patent popliteal artery there is multifocal stenosis estimated bet ween 60% and 10%. Popliteal arteries bilaterally do appear patent. There is three-vessel runoff of the proximal lower e xtremities towards the ankle joints. Flow becomes diminutive at both ankle joints. OTHER: Mild paraseptal emphysematous changes are seen of the lungs with few centrilobular blebs. No focal co nsolidation, pleural effusion or pneumothorax. No pulmonary mass is seen. Moderate to severe coronary artery calcifications. Heart is upper limits of normal size. The unenhanced images of the thorax and abdomen demonstrate no intramural hematoma. Moderate atherosclerosis. No nephrolithiasis nor radiopa que calculi in the gallbladder. No mediastinal adenopathy is seen. Thyroid gland is unremarkable. Mod erate multilevel degenerative disc disease of the spine. Mild tricompartmental arthropathy of the hip s and mild degenerative change of the femoral acetabular joints. The spleen is unremarkable as are the adrenal glands and pancreas. There are 2 small to accurately ch aracterize bilateral renal hypoattenuated lesions that are less than 1 cm. The liver is diffusely hyp oattenuated, most commonly related to hepatic steatosis and limiting evaluation for hepatic masses. N o focal hepatic mass is seen on today's examination. No intrahepatic biliary duct dilatation. No radi opaque calculus in the gallbladder. No greater than 1 cm short axis lymph node in the abdomen or pelv is. No dilated large or small bowel. Few scattered colonic diverticula without pericolonic fat strand ing. Prostate gland is heterogenous with central zone calcifications. Right inguinal ring is patulous and fat filled. IMPRESSION: 1. COMPLETE OCCLUSION OF THE RIGHT FEMORAL ARTERY NEAR THE MID DIAPHYSIS OF THE RIGHT FEMUR EXTENDING OVER A LENGTH OF APPROXIMATELY 5 CM. RECONSTITUTION OF THE RIGHT FEMORAL ARTERY DISTALLY JUST PROXIM AL TO THE POPLITEAL ARTERY . MULTIFOCAL STENOSIS OF THE RIGHT POPLITEAL ARTERY RANGING FROM 60-10%. T HREE-VESSEL RUNOFF JUST ABOVE THE ANKLE JOINT. 2. INCIDENTALLY NOTED MILD PARASEPTAL AND CENTRILOBULAR EMPHYSEMATOUS CHANGE, HEPATIC STEATOSIS, AND COLONIC DIVERTICULOSIS WITHOUT EVIDENCE OF ACUTE DIVERTICULITIS.
== END ==
LOC: RADCTMAIN 07:22
PROVIDERS: ATTEND Surgery
DX: I70.92 Chronic total occlusion of artery of the extremities (principal)
CPT/HCPCS: 75635; 71275; Q9967

== ENCOUNTER → 2019-03-05 | Outpatient (CLI) | payer MEDICARE ==
[2019-03-05 11:15] LABS: Basophils # (A) 0.1 k/uL (0-0.2); Basophils % (A) 1 %; Eosinophils # (A) 0.4 k/uL (0-0.7); Eosinophils % (A) 4 %; HCT 42.6 % (39.0-53.0); HGB 14.4 gm/dL (13.0-17.5); Lymphocytes # (A) 2.2 k/uL (1.0-4.8); Lymphocytes % (A) 22 %; MCH 31.4 pg (25.0-35.0); MCHC 33.9 g/dL (31.0-37.0); MCV 92.6 fL (80.0-100.0); Mean Platelet Volume 6.3; Monocytes # (A) 0.7 k/uL (0-1.0); Monocytes % (A) 7 %; Neutrophils # (A) 6.7 k/uL (1.3-7.7); Neutrophils % (A) 65 %; Platelet Count 252 k/uL (150-450); RDW 12.7 % (11.5-15.5); WBC 10.3 k/uL (3.8-10.6)
[2019-03-05 11:22] LABS: Potassium 4.5 mmol/L (3.5-5.1)
== END | disposition home or self-care (01) ==
LOC: LABPAT 10:41
PROVIDERS: ATTEND Surgery
DX: Z01.812 Encounter for preprocedural laboratory examination (principal); I70.213 Atherosclerosis of native arteries of extremities with intermittent claudication, bilateral legs
CPT/HCPCS: 36415; 80051; 82565; 84520; 85025

== ENCOUNTER → 2019-03-11 | Day surgery (SDC) | payer MEDICARE ==
[2019-03-09 08:46] VITALS: BMI 40.5
[~2019-03-11] MED LIST changes: +ASPIRIN 81 MG PO SCH; +ATORVASTATIN 80 MG TAB PO SCH; -ATORVASTATIN 80 MG TAB PO STA; +CARVEDILOL 6.25 MG TAB PO SCH; +FAMOTIDINE 20 MG TAB PO PRN; +HEPARIN SODIUM 1,000 UN/ML (10ML VL) IV ONE; +HYDROcodone/APAP 10-325MG 1 EACH TAB PO PRN; +HYDROmorphone 0.5 MG/0.5 ML SYRINGE IVP PRN; +IOPAMIDOL-250 100ML BTL INTRAARTER ONE; +LACTATED RINGERS 1,000 ML IV SCH; +LIDOCAINE 1% INJ 10MG/ML (20 ML MDV) SQ ONE; +MORPHINE SULFATE 4 MG/ML SYRINGE IV ONE; +PROTAMINE SULFATE 10 MG/ML 5 ML VIAL IV ONE; +SACUBITRIL/VALSARTAN 49 MG-51 MG TABLET PO SCH; +SODIUM CHLORIDE 0.45% 1,000 ML IV SCH; +TICAGRELOR 90 MG TAB PO SCH; +ZOLPIDEM 5 MG TAB PO PRN; +buPROPion XL 150 MG TAB.ER.24H PO SCH; +fentaNYL (PF) 50 MCG/ML 2 ML AMP IV ONE
[2019-03-11 06:38] VITALS: TEMP 98
[2019-03-11] MEDS: MIDAZOLAM 2 MG/2 ML VIAL IVP ONE ×2 (07:51→08:02)
--- NOTE | 2019-03-11 10:15 | P.OP ---
Date of Procedure: 03/11/19 Preoperative Diagnosis: Right superficial femoral artery occlusion. Lifestyle limiting claudication right calf. Postoperative Diagnosis: Same. Procedure(s) Performed: #1: Ultrasound-guided cannulation left femoral artery. #2: Selective catheterization right femoral artery via the contralateral approach. #3: Right femoral angiogram. #4: Balloon dilation right superficial femoral artery. #5: Stent placement right superficial femoral artery Anesthesia: MAC, local (With 2 mg of Versed and 2 mg of morphine sulfate for moderate conscious sedation) Surgeon: Chavez Magdaleno Estimated Blood Loss (ml): 25 Urine output (ml): 0 Pathology: none sent Condition: stable Disposition: same day Indications for Procedure: Patient is a 58-year-old male with a history of vascular disease who presented with lifestyle limiting claudication of the right lower extremity. The patient has had a history of cardiac disease and has undergone no significant cardiac therapy. Included in this was tobacco cessation. Overall the patient is feeling much improved however is bothered by his right calf claudication which he described as lifestyle limiting for him. Physical examination revealed femoral pulses are intact on the right warm popliteal, DP and PT pulses are absent on the right. These pulses were present on the left. Patient did undergo CT angiogram which demonstrated a total occlusion of the right superficial femoral artery at the adductor canal level. The patient was thought to be a adequate candidate for endovascular repair. The procedure, risk and benefits were discussed with the patient. We also discussed the possible need for surgical bypass. Patient wished to proceed with procedure. Description of Procedure: Patient was brought to the special procedure suite where both groins were sterilely prepped and draped in usual manner. He did receive 2 mg of Versed and 2 mg of morphine's sulfate for moderate conscious sedation purposes. Utilizing ultrasound the left femoral artery was identified. 1% Xylocaine was utilized for local anesthesia tissues overlying the left femoral artery. Through this anesthetized area and with the aid of ultrasound a multipurpose needle was utilized cannulate the artery. Once cannulated a guidewire is advanced into the artery. The needle was withdrawn and a 6-Barbadian sheath was placed. Omni Flush catheter was advanced over guidewire and utilized to cannulate the right iliac artery. The guidewire and catheter commendation were advanced down the iliac artery and the catheter was positioned at the common femoral level. The guidewire was withdrawn. Angiogram was performed of the right femoral artery. This demonstrated stenotic proximal portion of the SFA with a total occlusion of the mid SFA at the adductor canal level extending for a distance of approximately 12 cm. Multiple guidewire and catheter combination were utilized to eventually cross the lesion. Guidewire and catheter were advanced into the popliteal artery. Guidewire was withdrawn and angiogram demonstrated catheter to be within the popliteal artery. The short 6-Barbadian sheath was exchanged for an upper and over catheter and this was advanced over a guidewire into the proximal portion of the superficial femoral artery. Angiogram was performed. This demonstrated what appeared to be a dissection and possible subintimal position of the guidewire. Atherectomy was not thought to be appropriate in this setting however balloon angioplasty was thought to be a reasonable approach. As such a 5 mm balloon catheter was utilized to balloon dilate the previously occluded segment after the patient had been systemically heparinized with 6000 units of heparin. 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 It was felt that this be best treated with a covered stent. The balloon catheter was then advanced over the guidewire into the popliteal artery. The 035 guidewire was exchanged for a 018 guidewire and the balloon catheter was withdrawn. Over the guidewire a 6 mm x 250 mm Viabahn stent was selected and deployed in the area of previous stenosis. The 5 mm balloon dilation catheter was then utilized to balloon dilate the stent and completion angiogram was performed. This demonstrated no flow-limiting lesion with brisk flow through the stented area. To address the stenosis proximal to the stented area in the proximal superficial femoral artery the sheath was pulled back and a planing angiogram was performed. A 5 mm drug-eluting balloon catheter was selected and this area was balloon dilated. Completion angiogram demonstrated a very small and [id number] dissection. Less than 20% residual stenosis remained and no further intervention was felt appropriate. With the above findings noted all sheaths/catheters/guidewires were withdrawn and pressure was held at the puncture site until all evidence of bleeding ceased. Patient tolerated procedure well was taken the outpatient surgery area in satisfactory and stable condition. A palpable posterior tibial pulse was noted on the right at the completion of the procedure. Total fluoroscopy time 24.7 minutes. Total conscious sedation time 96 minutes. Total contrast volume 110 ML's of Isovue 250.
[2019-03-11 10:44] VITALS: RESP 16
[2019-03-11 12:27] VITALS: BP 166/92; PULSE 55
--- NOTE | 2019-03-12 11:33 | IR ---
EXAMINATION TYPE: IR stent intravas non coronary DATE OF EXAM: 03/11/2019 COMPARISON: NONE HISTORY: Fluoroscopy time. Fluoroscopy was provided to the referring clinician.
== END ==
LOC: CATHCVL 05:49
PROVIDERS: ATTEND Surgery
DX: I70.211 Atherosclerosis of native arteries of extremities with intermittent claudication, right leg (principal); I70.92 Chronic total occlusion of artery of the extremities; I25.10 Atherosclerotic heart disease of native coronary artery without angina pectoris; I10 Essential (primary) hypertension; Z86.73 Personal history of transient ischemic attack (TIA), and cerebral infarction without residual deficits; Z79.02 Long term (current) use of antithrombotics/antiplatelets; Z79.899 Other long term (current) drug therapy; Z79.891 Long term (current) use of opiate analgesic; Z79.82 Long term (current) use of aspirin; Z98.890 Other specified postprocedural states; Z87.891 Personal history of nicotine dependence; Z84.1 Family history of disorders of kidney and ureter; Z80.0 Family history of malignant neoplasm of digestive organs
CPT/HCPCS: 37226; C1769 ×7; C1894 ×2; C1887; C1725; C2623; C1874; J2250; J2720; J2270; J2001; J3010; J1644; Q9966

== ENCOUNTER 2020-04-04 07:23 | Day surgery (SDC) | payer MEDICARE, OTHER ==
[2020-03-28 13:55] VITALS: BMI 41.5
[~2020-04-04 07:23] MED LIST changes: -ALPRAZolam 0.25 MG TAB PO PRN; -ALPRAZolam 0.5 MG TAB PO PRN; -ASPIRIN 325 MG TAB PO STA; -ASPIRIN 81 MG PO SCH; -ATORVASTATIN 80 MG TAB PO SCH; -CARVEDILOL 6.25 MG TAB PO SCH; -FAMOTIDINE 20 MG TAB PO PRN; -HEPARIN SODIUM 1,000 UN/ML (10ML VL) IV ONE; -HYDROcodone/APAP 10-325MG 1 EACH TAB PO PRN; -HYDROmorphone 0.5 MG/0.5 ML SYRINGE IVP PRN; -IOPAMIDOL-250 100ML BTL INTRAARTER ONE; -LACTATED RINGERS 1,000 ML IV SCH; -LIDOCAINE 1% INJ 10MG/ML (20 ML MDV) SQ ONE; -MORPHINE SULFATE 4 MG/ML SYRINGE IV ONE; -NITROGLYCERIN SL TABS 0.4 MG TAB SUBLINGUAL PRN; -PROTAMINE SULFATE 10 MG/ML 5 ML VIAL IV ONE; -SACUBITRIL/VALSARTAN 49 MG-51 MG TABLET PO SCH; -SODIUM CHLORIDE 0.45% 1,000 ML IV SCH; -TICAGRELOR 90 MG TAB PO SCH; -ZOLPIDEM 5 MG TAB PO PRN; -buPROPion XL 150 MG TAB.ER.24H PO SCH; -fentaNYL (PF) 50 MCG/ML 2 ML AMP IV ONE
[2020-04-04 07:51] VITALS: TEMP 97.7
[2020-04-04] MEDS: MIDAZOLAM 2 MG/2 ML VIAL IVP ONE ×2 (10:01→10:13)
[2020-04-04] MEDS: fentaNYL (PF) 50 MCG/ML 2 ML AMP IVP ONE ×2 (10:01→10:13)
[2020-04-04] MEDS ORDERED: LIDOCAINE 1% INJ 10MG/ML (20 ML MDV) SQ ONE (10:09)
[2020-04-04] MEDS ORDERED: hydrALAZINE HCL 20 MG/ML 1 ML VIAL IVP ONE (10:29)
[2020-04-04] MEDS ORDERED: SODIUM CHLORIDE 0.9% 1,000 ML IV SCH (10:30)
--- NOTE | 2020-04-04 10:56 | AN ---
ANGIOGRAPHY REPORT DATE OF SERVICE: April 04, 2020 PERFORMING PHYSICIAN: Torsten Kilpatrick MD. PROCEDURE PERFORMED: 1. An abdominal aortogram. 2. Bilateral lower extremities runoff. INDICATION: This is a 59-year-old gentleman with peripheral arterial disease and prior intervention on the right leg, who was experiencing right leg intermittent claudication interfering with his daily activities. He underwent an arterial duplex study which revealed occluded right SFA and he was brought today to undergo an angiogram using CO2. APPROACH: Right common femoral artery. COMPLICATION: None. LEVEL OF SEDATION: Moderate with sedation length of 15 minutes. PROCEDURE: After obtaining an informed consent, the patient was brought to cardiac laboratory equipment cleaner. The right common femoral artery was cannulated using micropuncture technique and the micropuncture wire passed easily then I placed a 5-Georgian sheath. I did an aortogram with runoff using 5-Georgian pigtail catheter which was initially placed at the level of the renal arteries then it was pulled into above the bifurcation of the aorta to right and left common iliac arteries Please note that the procedure was performed using CO2 only without any contrast. FINDINGS: 1. The aorta appeared to be angiographically normal. 2. Common Iliac Arteries: Both are patent. 3. Internal Iliac Arteries: Both are patent. 4. External Iliac Arteries: Both are patent. 5. Common Femoral Arteries: Both are angiographically normal. 6. Profunda: Both are patent. 7. SFA: The right SFA is occluded from the proximal portion and reconstitutes by the Ramón canal. The left SFA appeared to have mild disease only. 8. Popliteal: Both appear to have mild disease only. 9. Below The Knee: There is 3-vessel runoff below the knee bilaterally. CONCLUSION: Occluded right SFA from the proximal portion to the Ramón canal. POSTPROCEDURE MANAGEMENT: CARD MOUNTER of the right SFA. MMODL / IJN: [id number] /
[2020-04-04] MEDS ORDERED: hydrALAZINE HCL 20 MG/ML 1 ML VIAL ONE (12:34)
[2020-04-04 12:43] VITALS: BP 155/84; PULSE 69; RESP 16
--- NOTE | 2020-04-04 14:03 | IR ---
Fluoroscopy HISTORY: Pain in right leg 2.3 minutes fluoroscopy time supplied to the referring clinician. 391 intraoperative C-arm images do cument the procedure. See dictated report from cardiology.
== END 2020-04-04 15:25 | disposition home or self-care (01) ==
LOC: CATHCVL 07:23
PROVIDERS: ATTEND Internal Medicine Interventional Cardiology
DX: I70.213 Atherosclerosis of native arteries of extremities with intermittent claudication, bilateral legs (principal); I25.5 Ischemic cardiomyopathy; I12.9 Hypertensive chronic kidney disease with stage 1 through stage 4 chronic kidney disease, or unspecified chronic kidney disease; N18.9 Chronic kidney disease, unspecified; E78.00 Pure hypercholesterolemia, unspecified; E78.5 Hyperlipidemia, unspecified; Z87.891 Personal history of nicotine dependence; Z79.82 Long term (current) use of aspirin; Z79.899 Other long term (current) drug therapy; Z95.5 Presence of coronary angioplasty implant and graft
CPT/HCPCS: 36200; 75625; 75716; C1769 ×3; J2250; J0360; J2001; J3010

== ENCOUNTER 2020-04-20 08:29 | Day surgery (SDC) | payer MEDICARE, OTHER ==
[2020-04-17 15:44] VITALS: BMI 41.3
[~2020-04-20 08:29] MED LIST changes: +LACTATED RINGERS 1,000 ML IV SCH; +LIDOCAINE 1% (10MG/ML) FOR IV START INTRADERMA PRN; -SODIUM CHLORIDE 0.9% 1,000 ML in EMPTY BAG 1 BAG IV ONE
[2020-04-20 08:50] VITALS: TEMP 97.8
[2020-04-20] MEDS ORDERED: LACTATED RINGERS 1,000 ML IV ONE (08:50)
[2020-04-20] MEDS ORDERED: PROPOFOL 10 MG/ML 20 ML VIAL IV ONE (09:39)
[2020-04-20] MEDS ORDERED: LIDOCAINE 1% INJ 10MG/ML (20 ML MDV) ONE (09:39)
--- NOTE | 2020-04-20 10:14 | P.PCN ---
Date of Procedure: 04/20/20 Description of Procedure: Brief history: Patient is a pleasant scheduled for an elective upper endoscopy as well as colonoscopy as a part of evaluation of epigastric abdominal pain and family history of colon cancer. Patient reports pain in his epigastric region of his abdomen. Currently the patient is on Protonix therapy. He has a prior history of alcohol abuse for which he is currently abstinent. Last colonoscopy in 7-8 years ago per patient report. Family history of colon cancer in his father in his 50s. Procedure performed: Esophagogastroduodenoscopy with biopsy Colonoscopy with polypectomy Estimated blood loss: Minimal. Preoperative diagnosis: Epigastric abdominal pain, family history of colon cancer, patient reports last colonoscopy 7-8 years ago Anesthesia: MAC Procedure: After informed consent was obtained from the patient was brought into the endoscopy unit and IV sedation was administered by anesthesia under continuous monitoring. Initially upper endoscopy was done. The Olympus GF 190 video endoscope was inserted into the mouth and esophagus intubated without any difficulty and was gradually advanced into the stomach and duodenum and carefully examined. The bulb and second part of the duodenum appeared normal, except for some erythema and superficial erosions that are suggestive of moderate duodenitis with biopsies taken. The scope was then withdrawn into the stomach adequately insufflated with air and upon careful examination the antrum and body, cardia and fundus appeared normal, except for some linear erythema and superficial erosions suggestive of moderate gastritis with biopsies of the antrum and body taken. The scope was then withdrawn into the esophagus. The GE junction was located at 42 cm to the incisors. It appeared regular with no erythema erosions or ulcerations or varices noted . Rest of the esophagus appeared normal. Patient tolerated the procedure well. At this time the patient continued to remain sedation. Initial digital rectal examination was normal. Olympus CF 190 video colonoscope was then inserted into the rectum and gradually advanced to the cecum without any difficulty. Careful examination was performed as the scope was gradually being withdrawn. The prep was excellent. The cecum, ascending colon, transverse colon, descending colon, sigmoid colon and rectum appeared normal. 3 diminutive polyps measuring 1-2 mm in size removed from the sigmoid colon and rectum 2. Retroflexion was performed in the rectum and no lesions were noted, internal hemorrhoids. Patient tolerated the procedure well. Impression: 1. Moderate gastritis. Moderate duodenitis. Biopsies of the antrum and body and the duodenum. 2. 3 diminutive polyps removed with cold forcep polypectomy from the sigmoid colon and rectum 2. Internal and external hemorrhoids. Recommendations: Findings of this examination were discussed with the patient. Okay to resume diet. Okay to resume medications. Await pathology from polypectomies and biopsies. Follow up in the GI clinic as scheduled. Repeat colonoscopy in 5 years for family history of colon cancer personal history of colon polyps.
[2020-04-20 10:22] VITALS: PULSE 76
[2020-04-20 10:40] VITALS: BP 124/75; RESP 16
== END 2020-04-20 11:04 | disposition home or self-care (01) ==
LOC: ORWHC2ENDO 08:29
PROVIDERS: ATTEND Internal Medicine
DX: Z12.11 Encounter for screening for malignant neoplasm of colon (principal); K63.5 Polyp of colon; K63.89 Other specified diseases of intestine; K62.1 Rectal polyp; K64.8 Other hemorrhoids; K64.4 Residual hemorrhoidal skin tags; K29.50 Unspecified chronic gastritis without bleeding; K31.9 Disease of stomach and duodenum, unspecified; K29.80 Duodenitis without bleeding; Z80.0 Family history of malignant neoplasm of digestive organs; I25.2 Old myocardial infarction; I25.10 Atherosclerotic heart disease of native coronary artery without angina pectoris; I10 Essential (primary) hypertension; E78.5 Hyperlipidemia, unspecified; J44.9 Chronic obstructive pulmonary disease, unspecified; G47.33 Obstructive sleep apnea (adult) (pediatric); Z98.890 Other specified postprocedural states; Z79.899 Other long term (current) drug therapy; Z79.891 Long term (current) use of opiate analgesic; Z79.82 Long term (current) use of aspirin; Z87.39 Personal history of other diseases of the musculoskeletal system and connective tissue; Z86.69 Personal history of other diseases of the nervous system and sense organs; Z95.5 Presence of coronary angioplasty implant and graft; Z86.73 Personal history of transient ischemic attack (TIA), and cerebral infarction without residual deficits
CPT/HCPCS: 45380; 43239; J2001; J2704; 88305

== ENCOUNTER 2020-04-26 13:25 | Inpatient (IN) | payer MEDICARE, OTHER ==
[2020-04-21 08:47] VITALS: BMI 41.0
[~2020-04-26 13:25] MED LIST changes: +ALPRAZolam 0.25 MG TAB PO PRN; +ASPIRIN 325 MG TAB PO PRN; -LACTATED RINGERS 1,000 ML IV SCH; -LIDOCAINE 1% (10MG/ML) FOR IV START INTRADERMA PRN; +SODIUM CHLORIDE 0.9% 1,000 ML in EMPTY BAG 1 BAG IV ONE
[2020-04-26] MEDS ORDERED: SODIUM CHLORIDE 0.9% 1,000 ML IV ONE (14:00)
[2020-04-26 14:24] LABS: Basophils # (A) 0.2 k/uL (0-0.2); Basophils % (A) 2 %; Eosinophils # (A) 0.6 k/uL (0-0.7); Eosinophils % (A) 5 %; HCT 44.6 % (39.0-53.0); HGB 15.1 gm/dL (13.0-17.5); Lymphocytes # (A) 2.2 k/uL (1.0-4.8); Lymphocytes % (A) 20 %; MCH 30.6 pg (25.0-35.0); MCHC 33.9 g/dL (31.0-37.0); MCV 90.1 fL (80.0-100.0); Monocytes # (A) 0.8 k/uL (0-1.0); Monocytes % (A) 7 %; Neutrophils # (A) 7.5 k/uL (1.3-7.7); Neutrophils % (A) 66 %; Platelet Count 234 k/uL (150-450); RBC 4.95 m/uL (4.30-5.90); RDW 13.3 % (11.5-15.5); WBC 11.4 k/uL (3.8-10.6)
[2020-04-26 14:36] LABS: Calcium 9.2 mg/dL (8.4-10.2); Potassium 4.7 mmol/L (3.5-5.1)
[2020-04-26] MEDS ORDERED: MIDAZOLAM 2 MG/2 ML VIAL IV ONE ×2 (17:00→18:27)
[2020-04-26] MEDS ORDERED: HYDROmorphone 0.5 MG/0.5 ML SYRINGE IVP ONE ×2 (17:00→18:00)
[2020-04-26] MEDS ORDERED: LIDOCAINE 1% INJ 10MG/ML (20 ML MDV) SQ ONE (17:04)
[2020-04-26] MEDS ORDERED: hydrALAZINE HCL 20 MG/ML 1 ML VIAL IV ONE (17:46)
[2020-04-26] MEDS ORDERED: SODIUM CHLORIDE 0.9% 500 ML 500 ML with niCARdipine 6.25 MG, NITROGLYCERIN-D5W PMX 0.05... IV ONE ×4 (17:50)
[2020-04-26] MEDS: fentaNYL (PF) 50 MCG/ML 2 ML AMP IV ONE ×2 (18:27→19:05)
[2020-04-26] MEDS ORDERED: ALTEPLASE 10 MG in SODIUM CHLORIDE 0.9% 100 ML IA ONE (19:08)
[2020-04-26] MEDS ORDERED: ALTEPLASE BOLUS 1 MG/1 ML SYRINGE IV STA (19:09)
[2020-04-26] MEDS ORDERED: NITROGLYCERIN SL TABS 0.4 MG TAB SUBLINGUAL PRN (19:22)
[2020-04-26] MEDS ORDERED: SODIUM CHLORIDE 0.9% 1,000 ML in EMPTY BAG 1 BAG IV SCH (19:30)
[2020-04-26] MEDS ORDERED: CLOPIDOGREL 75 MG TAB PO ONE (19:43)
[2020-04-26] MEDS ORDERED: IOPAMIDOL-250 100ML BTL INTRAARTER ONE (19:43)
[2020-04-26 19:57] LABS: Glucose,Whole Blood 125 mg/dL (75-99)
[2020-04-26] MEDS ORDERED: ONDANSETRON 4 MG/2 ML VIAL IVP PRN (21:17)
[2020-04-26] MEDS: ATORVASTATIN 80 MG TAB PO SCH (21:41)
--- NOTE | 2020-04-26 22:29 | PCN ---
PROCEDURE NOTE PERCUTANEOUS PERIPHERAL INTERVENTION: DATE OF SERVICE: 04/26/2020 PERFORMING PHYSICIAN: Torsten Kilpatrick M.D. PROCEDURES PERFORMED: 1. Atherectomy of the right SFA using the HawkOne device. 2. Successful stenting of the right SFA using a 7 x 80 mm Zilver PTX drug-coated stent with an excellent angiographic result. 3. Intravascular ultrasound (IVUS) of the right SFA and right common femoral artery. 4. Successful placement of infusion catheter in the right SFA. 5. Selective right posterior tibial angiogram. INDICATION: This is a 59-year-old gentleman with peripheral arterial disease and prior percutaneous intervention on the right SFA using Viabahn stent. He was experiencing right leg intermittent claudication interfering with his daily activities. He underwent an angiogram that revealed occluded right SFA which seems to be in-stent occlusion. He was brought today to undergo an intervention. APPROACH: Left common femoral artery and right posterior tibial artery. COMPLICATIONS: None. LEVEL OF SEDATION: Moderate, with sedation length of 132 minutes. PROCEDURE DESCRIPTION: After obtaining informed consent, the patient was brought to the cardiac earthmoving labourer. The left common femoral artery was cannulated using micropuncture technique. The micropuncture wire passed easily. Then I placed a 6-Occitan 70 cm sheath at the left common femoral artery. After that I did select the right profunda using an 0.035 stiff Glidewire with the back- up support of 5-Occitan RIM catheter. After that I did advance the long sheath from the left groin over the RIM catheter and 0.[address] way to the right common femoral artery. Attempting crossing the BAND SAW FILER using the 0.014 wire and 0.018 wire and 0.035 wire was successful in antegrade technique. After multiple attempts, I decided to cross it using retrograde technique after accessing the right posterior tibial artery. I did access the right posterior tibial artery using micropuncture technique under ultrasound guidance. The micropuncture wire passed easily. Then I placed a slender 5/6- Occitan sheath in the right posterior tibial artery. Subsequently, I did selective right posterior tibial artery angiogram. That showed 2- vessel runoff. After that I was able to cross the chronic total occlusion of the right SFA in retrograde technique from the right posterior tibial artery sheath. After that I did intravascular ultrasound to prove that I was in the true lumen. After that I did atherectomy using the HawkOne device. Balloon angioplasty was achieved using 5 mm balloon with inadequate angiographic results. Subsequently I placed a 7 x 80 mm Zilver PTX drug-coated stent in the proximal right SFA right from the takeoff from the common femoral artery. The stent was positioned under fluoroscopic guidance and deployed under fluoroscopic guidance. The stent was post- dilated using a 6 mm balloon. After that, there was a significant amount of clot identified in the stented segment from before. I decided to place an infusion catheter. I snared the wire from down all the way to the left common femoral artery and then after that I placed an infusion catheter, and the patient will be infused with tPA overnight. He will be brought tomorrow for a second look. The procedure was completed without any complication. POST-PROCEDURE MANAGEMENT: 1. Bring the patient for second look tomorrow. 2. Dual anti-platelet therapy. 3. Follow up with the patient. MMAARONL / LETAN: [id number] /
[2020-04-27] MEDS: HYDROcodone/APAP 10-325MG 1 EACH TAB PO PRN ×2 (00:33→09:19)
[2020-04-27] MEDS: carvediloL 12.5 MG TAB PO SCH ×2 (06:49→17:25)
[2020-04-27 07:28] LABS: HCT 42.1 % (39.0-53.0); HGB 14.2 gm/dL (13.0-17.5); MCH 30.8 pg (25.0-35.0); MCHC 33.7 g/dL (31.0-37.0); MCV 91.3 fL (80.0-100.0); Mean Platelet Volume 6.7; Platelet Count 165 k/uL (150-450); RBC 4.61 m/uL (4.30-5.90); RDW 13.3 % (11.5-15.5); WBC 16.2 k/uL (3.8-10.6)
[2020-04-27 07:45] LABS: Calcium 8.6 mg/dL (8.4-10.2); Potassium 4.3 mmol/L (3.5-5.1)
[2020-04-27] MEDS: PANTOPRAZOLE 40 MG TABLET PO SCH (08:33)
[2020-04-27] MEDS: buPROPion XL 150 MG TAB.ER.24H PO SCH (08:33)
[2020-04-27] MEDS: SACUBITRIL/VALSARTAN 24 MG-26 MG TABLET PO SCH (08:33)
[2020-04-27] MEDS: ASPIRIN 325 MG TAB PO SCH (08:33)
--- NOTE | 2020-04-27 10:21 | IR ---
EXAMINATION TYPE: IR radio division captain femoral popliteal DATE OF EXAM: 04/26/2020 COMPARISON: NONE HISTORY: Fluoroscopy time. Fluoroscopy was provided to the referring clinician.
[2020-04-27] MEDS ORDERED: IV FLUID CONTINUATION 1,000 ML IV ONE (10:50)
[2020-04-27] MEDS ORDERED: HYDROmorphone 1 MG/ML 1 ML SYRINGE IVP ONE (10:51)
[2020-04-27] MEDS ORDERED: MIDAZOLAM 2 MG/2 ML VIAL IV ONE (10:59)
[2020-04-27] MEDS: fentaNYL (PF) 50 MCG/ML 2 ML AMP IV ONE ×4 (10:59→11:33)
[2020-04-27] MEDS ORDERED: niCARdipine Syringe (1,000 mcg/10 mL) INTRACORON ONE (11:24)
[2020-04-27] MEDS ORDERED: NITROGLYCERIN 1000MCG/10ML SYRINGE INTRACORON ONE (11:24)
[2020-04-27] MEDS ORDERED: IOPAMIDOL-370 100ML BTL INJ ONE (11:33)
[2020-04-27] MEDS ORDERED: CLOPIDOGREL 75 MG TAB PO ONE (11:33)
[2020-04-27] MEDS ORDERED: CLOPIDOGREL 75 MG TAB PO SCH (12:00)
[2020-04-27] MEDS ORDERED: SODIUM CHLORIDE 0.9% 1,000 ML in EMPTY BAG 1 BAG IV SCH (12:00)
--- NOTE | 2020-04-27 12:21 | IR ---
EXAMINATION TYPE: IR ferryboat captain femoral popliteal DATE OF EXAM: 04/27/2020 COMPARISON: NONE HISTORY: Fluoroscopy time. Fluoroscopy was provided to the referring clinician.
--- NOTE | 2020-04-27 14:10 | LTR ---
April 27, 2020 Re: Vinay Alston Dear Dr. Duke: MrSabra Alston underwent successful angioplasty of the right SFA. I want to thank you for allowing me to participate in his care and please do not hesitate to call if you have any question or concerns. Sincerely, MD SALMA Simon / NESTOR: [phone] /
--- NOTE | 2020-04-27 19:00 | PN ---
PROGRESS NOTE CHIEF COMPLAINT: ASCVD. HISTORY OF PRESENT ILLNESS: This gentleman is doing fairly well, but he is having quite a bit of discomfort in the groin area. He has had no palpitations, fever, chills, chest pain, etc. PHYSICAL EXAMINATION: His vital signs are normal. Chest is clear. Cardiac exam is normal. The abdomen is protuberant and soft. Lower extremities both are warm to palpation and have good capillary fill. IMPRESSION: 1. Peripheral vascular occlusive disease. 2. Atherosclerotic cardiovascular disease. 3. Coronary artery disease. 4. Chronic obstructive pulmonary disease. 5. Hypertension. PLAN: Continue to follow with Cardiology. MMODL / IJN: [id number] /
[2020-04-27] MEDS: ATORVASTATIN 80 MG TAB PO SCH (19:51)
--- NOTE | 2020-04-27 20:17 | CONS ---
CONSULTATION DATE OF SERVICE: 04/26/2020 CHIEF COMPLAINT: Peripheral vascular occlusive disease. HISTORY OF PRESENT ILLNESS: This gentleman was brought in for an elective procedure on his right lower extremity. He has extensive atherosclerotic cardiovascular disease with essential hypertension, coronary artery disease, and he continues to smoke heavily. REVIEW OF SYSTEMS: He is having some discomfort in that right leg. He has had no headaches, recent neurologic problems, change in vision or hearing, chest pain, shortness of breath, abdominal pain, nausea, vomiting, hematemesis, melena, hematochezia, jaundice, renal failure, etc. Past medical history, family history, and personal and social histories can all be found in his admitting summary and past medical records. PHYSICAL EXAMINATION: Blood pressure is 130/90 with a pulse of 71, respirations of 35, and he is afebrile. In general he appeared to be overweight. Skin was dry and lymph nodes were not enlarged. Head, ears, eyes, nose, mouth and throat were normal. Neck veins were not distended. Chest was clear to auscultation and percussion. Cardiac exam demonstrated sinus tachycardia. The abdomen was soft and nontender. Extremities were unremarkable except for absent pulses in both lower extremities. Neurologically he was intact. IMPRESSION: 1. Peripheral vascular occlusive disease affecting the right lower extremity. 2. Generalized atherosclerotic cardiovascular disease. 3. Essential hypertension. 4. Coronary artery disease. 5. Chronic obstructive pulmonary disease. RECOMMENDATIONS: None at this time. Thank you. Respectfully, Cory Duke II, M.D. SALMA / NESTOR: [phone] /
--- NOTE | 2020-04-27 20:22 | PCN ---
PROCEDURE NOTE DATE OF SERVICE: 04/27/2020 PERFORMING PHYSICIAN: Torsten Kilpatrick M.D. PROCEDURES PERFORMED: 1. Second-check angiogram after tPA infusion overnight via catheter in the right SFA. 2. Successful balloon angioplasty of the right popliteal and right SFA using 6 x 150 mm drug-coated balloon with an excellent angiographic result. 3. Left common femoral artery angiogram. INDICATION: This is a 59-year-old gentleman with peripheral arterial disease who underwent in the past successful balloon angioplasty and stenting of the right SFA. He was experiencing recently right lower extremity intermittent claudication and underwent an angiogram yesterday that revealed a large clot in the right SFA. An infusion catheter was placed and he was dripped overnight with tPA and was brought today for a second look. APPROACH: Left common femoral artery. COMPLICATIONS: None. LEVEL OF SEDATION: Moderate, with sedation length of 37 minutes. PROCEDURE DESCRIPTION: Please refer to my procedure note from yesterday. I advanced an 0.035 wire through the infusion catheter all the way to the right popliteal. The infusion catheter after that was pulled out. I did an angiogram which revealed a tight lesion in the distal segment of the right SFA as well as a tight lesion in the right popliteal. Balloon angioplasty was achieved using 6 x 150 mm drug-coated balloon which was an Impact balloon which was inflated under 8 atmospheres for 3 minutes. The following angiogram showed good angiographic results and the procedure was completed without any complication. After that I did exchange my long sheath for a short sheath using 0.035 Glidewire. Then I did selective left common femoral artery angiogram before I deployed the Perclose device. POST-PROCEDURE MANAGEMENT: 1. Dual anti-platelet therapy and possibly anticoagulation down the line. 2. Risk factor modifications. 3. Follow up with the patient. Please note that the procedure was performed without anticoagulation because ACT was high and the patient was dripped with tPA overnight. MMODL / IJN: [id number] /
[2020-04-28 04:49] LABS: Basophils # (A) 0.1 k/uL (0-0.2); Basophils % (A) 1 %; Eosinophils # (A) 0.4 k/uL (0-0.7); Eosinophils % (A) 3 %; HGB 12.9 gm/dL (13.0-17.5); Lymphocytes # (A) 1.4 k/uL (1.0-4.8); Lymphocytes % (A) 9 %; MCH 30.9 pg (25.0-35.0); MCV 90.9 fL (80.0-100.0); Mean Platelet Volume 6.8; Monocytes # (A) 1.5 k/uL (0-1.0); Monocytes % (A) 10 %; Neutrophils # (A) 11.8 k/uL (1.3-7.7); Neutrophils % (A) 76 %; Platelet Count 127 k/uL (150-450); RBC 4.18 m/uL (4.30-5.90); RDW 13.2 % (11.5-15.5); WBC 15.5 k/uL (3.8-10.6)
[2020-04-28 05:16] LABS: Calcium 8.4 mg/dL (8.4-10.2)
[2020-04-28 05:48] LABS: Potassium 4.3 mmol/L (3.5-5.1)
[2020-04-28] MEDS: carvediloL 12.5 MG TAB PO SCH (06:52)
[2020-04-28] MEDS: ASPIRIN 325 MG TAB PO SCH (08:08)
[2020-04-28] MEDS: PANTOPRAZOLE 40 MG TABLET PO SCH (08:08)
[2020-04-28] MEDS: SACUBITRIL/VALSARTAN 24 MG-26 MG TABLET PO SCH (08:09)
[2020-04-28] MEDS: buPROPion XL 150 MG TAB.ER.24H PO SCH (08:09)
[2020-04-28 08:33] VITALS: TEMP 98.1
[2020-04-28] MEDS ORDERED: CLOPIDOGREL 75 MG TAB PO SCH (09:00)
[2020-04-28 11:43] VITALS: BP 111/76; PULSE 76; RESP 13
--- NOTE | 2020-04-28 13:31 | DS ---
DISCHARGE SUMMARY ADMISSION DATE: April 26, 2020. DISCHARGE DATE: April 28, 2020. BRIEF HISTORY: This is a pleasant 59-year-old gentleman with peripheral arterial disease who underwent an angiogram recently and that revealed occluded right SFA which is in-stent occlusion was performed by another physician. I did bring the patient the day before yesterday where he underwent successful crossing chronic total occlusion of the right SFA and I found the patient to have a large thrombus burden. I placed an infusion catheter overnight and brought the patient yesterday and the angiogram showed significant improvement in the flow in the right SFA. I did balloon angioplasty using a drug-coated balloon and the patient was monitored overnight. He was seen this morning. The left groin is soft and nontender and without any bruises. The patient is going to be discharged home on dual anti-platelet therapy and I will follow up with the patient next week in the office. MMANNIE / LETAN: [id number] /
--- NOTE | 2020-04-28 18:33 | PN ---
PROGRESS NOTE CHIEF COMPLAINT: PVOD. HISTORY OF PRESENT ILLNESS: This gentleman is doing a lot better. He is not having any significant pain today. There has been no bleeding and no swelling in the groin. He expects to go home today. PHYSICAL EXAMINATION: Vital signs are normal. Chest is clear. Cardiac exam is normal. The abdomen is protuberant and soft. Both lower extremities are warm. IMPRESSION: 1. Peripheral vascular occlusive disease. 2. Chronic obstructive pulmonary disease. 3. Hypertension. PLAN: Probably home today. MMODL / IJN: [id number] /
[2020-05-08] MEDS ORDERED: ERGOCALCIFEROL 1,250 MCG (50,000 IU) CAPSULE PO SCH (09:00)
== END 2020-04-28 12:00 | disposition home or self-care (01) | DRG 253 ==
LOC: CATHCVL 13:25 → 2SICU 19:15
PROVIDERS: ADMIT Internal Medicine Interventional Cardiology; ATTEND Internal Medicine Interventional Cardiology
PROC: 04HK33Z Insertion of Infusion Device into Right Femoral Artery, Percutaneous Approach (ICD-10-PCS; principal; 2020-04-26 14:55)
PROC: B41G1ZZ Fluoroscopy of Left Lower Extremity Arteries using Low Osmolar Contrast (ICD-10-PCS; principal; 2020-04-26 14:55)
PROC: B41J1ZZ Fluoroscopy of Other Lower Arteries using Low Osmolar Contrast (ICD-10-PCS; principal; 2020-04-26 14:55)
PROC: 047K34Z Dilation of Right Femoral Artery with Drug-eluting Intraluminal Device, Percutaneous Approach (ICD-10-PCS; principal; 2020-04-26 14:55)
PROC: 047M3D1 Dilation of Right Popliteal Artery with Intraluminal Device, using Drug-Coated Balloon, Percutaneous Approach (ICD-10-PCS; 2020-04-27 08:25)
PROC: 047K3D1 Dilation of Right Femoral Artery with Intraluminal Device, using Drug-Coated Balloon, Percutaneous Approach (ICD-10-PCS; 2020-04-27 08:25)
PROC: 3E03317 Introduction of Other Thrombolytic into Peripheral Vein, Percutaneous Approach (ICD-10-PCS; 2020-04-27 08:25)
DX: T82.856A Stenosis of peripheral vascular stent, initial encounter (principal); I70.92 Chronic total occlusion of artery of the extremities; F17.200 Nicotine dependence, unspecified, uncomplicated; I10 Essential (primary) hypertension; I25.10 Atherosclerotic heart disease of native coronary artery without angina pectoris; I70.201 Unspecified atherosclerosis of native arteries of extremities, right leg; J44.9 Chronic obstructive pulmonary disease, unspecified
CPT/HCPCS: 37211; 37214; 37224; 37227; 80048; 85025; 85027; 85347

== ENCOUNTER → 2020-06-21 | Outpatient (CLI) | payer MEDICARE, OTHER | LOC: RADMRIMAIN 07:50 | PROVIDERS: ATTEND Internal Medicine Gastroenterology | DX: Z53.9 Procedure and treatment not carried out, unspecified reason (principal) ==

== ENCOUNTER → 2020-11-02 | Outpatient (CLI) | payer MEDICARE, OTHER ==
[2020-11-02 10:55] LABS: Calcium 9.2 mg/dL (8.4-10.2); Potassium 4.4 mmol/L (3.5-5.1)
[2020-11-02 11:07] LABS: Basophils # (A) 0.1 k/uL (0-0.2); Basophils % (A) 1 %; Eosinophils # (A) 0.7 k/uL (0-0.7); Eosinophils % (A) 6 %; HCT 46.8 % (39.0-53.0); HGB 15.6 gm/dL (13.0-17.5); Lymphocytes # (A) 1.8 k/uL (1.0-4.8); Lymphocytes % (A) 16 %; MCH 30.9 pg (25.0-35.0); MCHC 33.4 g/dL (31.0-37.0); MCV 92.6 fL (80.0-100.0); Mean Platelet Volume 7.3; Monocytes # (A) 0.8 k/uL (0-1.0); Monocytes % (A) 7 %; Neutrophils # (A) 7.5 k/uL (1.3-7.7); Neutrophils % (A) 67 %; Platelet Count 226 k/uL (150-450); RBC 5.06 m/uL (4.30-5.90); RDW 13.5 % (11.5-15.5); WBC 11.1 k/uL (3.8-10.6)
== END | disposition home or self-care (01) ==
LOC: LABPAT 10:10
PROVIDERS: ATTEND Urology
DX: Z01.812 Encounter for preprocedural laboratory examination (principal); D49.4 Neoplasm of unspecified behavior of bladder
CPT/HCPCS: 36415; 80048; 85025

== ENCOUNTER 2020-11-09 06:53 | Day surgery (SDC) | payer MEDICARE, OTHER ==
--- NOTE | 2020-11-06 07:21 | P.GSHP ---
History of Present Illness H&P Date: 11/06/20 Chief Complaint: Gross hematuria The patient is a 60-year-old white male with an unremarkable urologic history who underwent evaluation for gross hematuria. He was experiencing back pain and passed clots. The patient's father was diagnosed with bladder cancer within the past year. CT scan showed bilateral small renal cysts. Cystoscopy shows multiple tumors involving the bladder dome, posterior bladder wall, anterior bladder wall, and left lateral bladder wall. He now comes for resection. The tumors have a superficial appearance. - Cardiovascular Cardiovascular: Reports high blood pressure - Gastrointestinal Gastrointestinal: Reports loss of appetite - Genitourinary (Male) Genitourinary: Reports flank pain, Reports hematuria Past Medical History Past Medical History: Chest Pain / Angina, COPD, CVA/TIA, Hyperlipidemia, Hypertension, Myocardial Infarction (NH), Osteoarthritis (OA), Skin Disorder, Sleep Apnea/CPAP/BIPAP Additional Past Medical History / Comment(s): TIA 2007(diff spelling words since), no cpap used eczema, decreased kidney function in past-now resolved per pt Last Myocardial Infarction Date:: 2012 History of Any Multi-Drug Resistant Organisms: None Reported Past Surgical History: Heart Catheterization With Stent, Orthopedic Surgery Additional Past Surgical History / Comment(s): one cardiac stent, rotator cuff left shoulder, edie carpal tunnel, Past Anesthesia/Blood Transfusion Reactions: No Reported Reaction Date of Last Stent Placement:: 2012 Additional Past Alcohol Use History / Comment(s): started smoking age 19, - Past Family History Father Family Medical History: Cancer Additional Family Medical History / Comment(s): colon,pancreatic Medications and Allergies Home Medications Medication Instructions Recorded Confirmed Type Atorvastatin Calcium [Lipitor] 80 mg PO HS 12/03/17 04/26/20 History buPROPion HCL [Wellbutrin XL] 150 mg PO DAILY 12/03/17 04/26/20 History Nitroglycerin Sl Tabs [Nitrostat] 0.4 mg SUBLINGUAL Q5M PRN #25 tab 05/23/18 04/26/20 Rx HYDROcodone/APAP 10-325MG [[place] 1 tab PO Q4HR PRN 03/11/19 04/26/20 History 10-325] Aspirin 325 mg PO DAILY 04/04/20 04/26/20 History Ergocalciferol (Vitamin D2) 50,000 unit PO Q30D 04/04/20 04/26/20 History [Vitamin D2 (50,000 Iu)] Pantoprazole Sodium [Protonix] 40 mg PO DAILY 04/04/20 04/26/20 History carvediloL [Coreg] 12.5 mg PO BID-W/MEALS 04/04/20 04/26/20 History Sacubitril/Valsartan [Entresto 24 1 each PO DAILY 04/17/20 04/26/20 History mg-26 mg Tablet] Clopidogrel [Plavix] 75 mg PO DAILY #90 tab 04/28/20 Rx Allergies Allergy/AdvReac Type Severity Reaction Status Date / Time No Known Allergies Allergy Verified 04/21/20 08:39 Surgical - Exam - General well developed, well nourished, no distress - Neck no masses, trachea midline - Respiratory normal respiratory effort - Abdomen Abdomen: soft, non tender, no guarding, no rigid, no rebound Hernia: inguinal - Genitourinary normal penis with no external lesions, testicles non-tender - Psychiatric oriented to time, oriented to person, oriented to place, speech is normal, memory intact Assessment and Plan (1) Neoplasm of unspecified behavior of bladder Status: Acute Code(s): D49.4 - NEOPLASM OF UNSPECIFIED BEHAVIOR OF BLADDER SNOMED Code(s): 434426992 Plan: Cystoscopy, transurethral resection of multiple bladder tumors. The procedure has been reviewed in detail with the patient. He has been made aware of potential risks, which include anesthesia, bleeding, infection, incomplete resection, and bladder perforation.
[~2020-11-09 06:53] MED LIST changes: -ALPRAZolam 0.25 MG TAB PO PRN; -ASPIRIN 325 MG TAB PO PRN; +DEXAMETHASONE SOD PHOSPHATE 4 MG/ML 1 ML VIAL IV ONE; +LACTATED RINGERS 1,000 ML IV SCH; +LIDOCAINE 1% (10MG/ML) FOR IV START INTRADERMA PRN; +ONDANSETRON 4 MG/2 ML VIAL IVP ONE; -SODIUM CHLORIDE 0.9% 1,000 ML in EMPTY BAG 1 BAG IV ONE
[2020-11-09] MEDS ORDERED: ePHEDrine SULFATE/0.9% NACL/PF 50 MG/5 ML SYRINGE IV ONE (08:37)
[2020-11-09] MEDS ORDERED: MIDAZOLAM 2 MG/2 ML VIAL ONE (08:37)
[2020-11-09] MEDS ORDERED: GLYCOPYRROLATE 0.2 MG/ML 2 ML VIAL ONE (08:37)
[2020-11-09] MEDS ORDERED: FUROSEMIDE 10 MG/ML 2 ML VIAL ONE (08:37)
[2020-11-09] MEDS ORDERED: ROCURONIUM 10 MG/ML (5 ML VIAL) IV ONE (08:37)
[2020-11-09] MEDS ORDERED: NEOSTIGMINE 1 MG/ML 10 ML VIAL ONE (08:37)
[2020-11-09] MEDS ORDERED: LIDOCAINE 1% INJ 10MG/ML (20 ML MDV) ONE (08:37)
[2020-11-09] MEDS ORDERED: SUCCINYLCHOLINE CHLORIDE 100 MG/5 ML SYR IV ONE (08:37)
[2020-11-09] MEDS ORDERED: PROPOFOL 10 MG/ML 20 ML VIAL IV ONE (08:37)
[2020-11-09] MEDS ORDERED: fentaNYL (PF) 50 MCG/ML 2 ML AMP ONE (08:37)
[2020-11-09] MEDS ORDERED: LACTATED RINGERS 1,000 ML IV ONE (09:50)
[2020-11-09 10:29] VITALS: RESP 16; TEMP 97.2
--- NOTE | 2020-11-09 10:33 | P.OP ---
Date of Procedure: 11/09/20 Preoperative Diagnosis: Bladder tumors Postoperative Diagnosis: Same Procedure(s) Performed: Cystoscopy, TURBT (large) Anesthesia: CADE Surgeon: Slick Reinoso Estimated Blood Loss (ml): 25 IV fluids (ml): 1,000 Pathology: other (Multiple tumor fragments) Condition: stable Disposition: PACU Indications for Procedure: The patient is a 60-year-old white male with an unremarkable urologic history who underwent evaluation for gross hematuria. He was experiencing back pain and passed clots. The patient's father was diagnosed with bladder cancer within the past year. CT scan showed bilateral small renal cysts. Cystoscopy shows multiple tumors involving the bladder dome, posterior bladder wall, anterior bladder wall, and left lateral bladder wall. He now comes for resection. The tumors have a superficial appearance. Operative Findings: 3 cm tumor arising from bladder dome. Additional small, confluent tumors involving the left lateral bladder wall, posterior bladder wall, and trigone. Description of Procedure: The patient was taken in the operating room and placed in the dorsal lithotomy position, with his legs supported in Kendrick stirrups. The external genitalia was prepped and draped sterilely. The Caden urethrotome was used to incise the urethra to 25-Moroccan. The 25-Moroccan ACMI resectoscope sheath was introduced into the bladder. The bladder was inspected. The right ureteral orifice appeared normal, and clear urine effluxed from it. Superficial tumors surrounded the orifice. Tumors measuring approximately 1 cm each covered the left hemitrigone and left lateral bladder wall, obscuring the left ureteral orifice. A 2-3 cm tumor arose from the bladder dome. All tumors had a papillary, low-grade appearance. A large portion of the left lateral and posterior bladder allen was covered with tumor, an area exceeding 10 cm. The prostate was partially obstructed with a bilobar configuration. No urothelial changes were seen within the prostatic urethra. Using the cutting loop, the tumors were resected down to the muscle. It was necessary to resect both ureteral orifices. A biopsy of the right posterior prostatic urethra was obtained using the resectoscope. The resection beds were fulgurated, though care was taken not to fulgurate the area surrounding the ureteral orifices. Very good hemostasis was attained. There was no evidence of bladder perforat ion. The resected tissue was saved and sent for pathologic examination. An 18- Moroccan Terrazas catheter was inserted. The return was essentially clear. The patient tolerated the procedure well. He was taken to the recovery room in stable condition.
[2020-11-09] MEDS: HYDROmorphone 0.5 MG/0.5 ML SYRINGE IVP ONE ×3 (10:37→10:59)
[2020-11-09] MEDS ORDERED: HYDROcodone/APAP 5-325MG 1 EACH TAB ONE (11:45)
[2020-11-09] MEDS ORDERED: HYDROcodone/APAP 5-325MG 1 EACH TAB PO ONE (11:50)
[2020-11-09 12:01] VITALS: PULSE 68
[2020-11-09 12:14] VITALS: BP 148/86
== END 2020-11-09 12:34 | disposition home or self-care (01) ==
LOC: OR 06:53
PROVIDERS: ATTEND Urology
DX: C67.1 Malignant neoplasm of dome of bladder (principal); C67.2 Malignant neoplasm of lateral wall of bladder; C67.4 Malignant neoplasm of posterior wall of bladder; I10 Essential (primary) hypertension; J44.9 Chronic obstructive pulmonary disease, unspecified; E78.5 Hyperlipidemia, unspecified; I25.2 Old myocardial infarction; M19.90 Unspecified osteoarthritis, unspecified site; Z79.899 Other long term (current) drug therapy; F17.210 Nicotine dependence, cigarettes, uncomplicated
CPT/HCPCS: 52235; 88305; 88307; J2250; J1100; J1940; J2710; J0690; J2405; J2001; J3010; J0330; J2704; J1170

== ENCOUNTER 2020-11-10 15:57 | Emergency (ER) | payer MEDICARE, OTHER ==
[2020-11-10 16:24] VITALS: BP 152/115; PULSE 77; RESP 18; TEMP 98
--- NOTE | 2020-11-10 17:39 | ED ---
Male Urogenital HPI - General Chief complaint: Urogenital Stated complaint: catheter issues Time Seen by Provider: 11/10/20 16:33 Source: patient Mode of arrival: ambulatory Limitations: no limitations - History of Present Illness Initial comments: 60-year-old male presents emergency Department with chief complaint of urine going around the Terrazas catheter. Patient reports yesterday he had bladder surgery performed and had a Terrazas catheter inserted. Patient states now he has some drainage around the Terrazas. However, he states most of drainage is gone and to the back. States she has never had a Terrazas catheter and is unsure of how he should properly function. He denies any pain or discharge from the region. States there is no blood in the catheter bag. He denies any significant pressure over the bladder or any pain in his back. Denies any nausea or vomiting. States she has been drinking plenty of water. States he has R to change the Terrazas catheter bag once. - Related Data Home Medications Medication Instructions Recorded Confirmed Atorvastatin Calcium [Lipitor] 80 mg PO HS 12/03/17 11/09/20 buPROPion HCL [Wellbutrin XL] 150 mg PO DAILY 12/03/17 11/06/20 HYDROcodone/APAP 10-325MG [[place] 1 tab PO Q4HR PRN 03/11/19 11/09/20 10-325] Ergocalciferol (Vitamin D2) 50,000 unit PO Q30D 04/04/20 11/09/20 [Vitamin D2 (50,000 Iu)] Pantoprazole Sodium [Protonix] 40 mg PO DAILY 04/04/20 11/06/20 carvediloL [Coreg] 12.5 mg PO BID-W/MEALS 04/04/20 11/06/20 Sacubitril/Valsartan [Entresto 24 1 each PO BID 04/17/20 11/06/20 mg-26 mg Tablet] Aspirin [Adult Low Dose Aspirin EC] 81 mg PO DAILY 11/06/20 11/06/20 Dicyclomine HCl 10 mg PO TID 11/06/20 11/06/20 amLODIPine BESYLATE 10 mg PO DAILY 11/06/20 11/06/20 Previous Rx's Medication Instructions Recorded Nitroglycerin Sl Tabs [Nitrostat] 0.4 mg SUBLINGUAL Q5M PRN #25 tab 05/23/18 Clopidogrel [Plavix] 75 mg PO DAILY #90 tab 04/28/20 Allergies Allergy/AdvReac Type Severity Reaction Status Date / Time No Known Allergies Allergy Verified 11/10/20 16:24 Review of Systems ROS Statement: Those systems with pertinent positive or pertinent negative responses have been documented in the HPI. ROS Other: All systems not noted in ROS Statement are negative. Past Medical History Past Medical History: Cancer, Chest Pain / Angina, COPD, CVA/TIA, Deep Vein Thrombosis (DVT), Hyperlipidemia, Hypertension, Myocardial Infarction (SD), Osteoarthritis (OA), Skin Disorder, Sleep Apnea/CPAP/BIPAP, Vascular Disorder Additional Past Medical History / Comment(s): TIA 2007(diff spelling words since), no cpap used eczema, decreased kidney function in past-now resolved per pt Last Myocardial Infarction Date:: 2012 History of Any Multi-Drug Resistant Organisms: None Reported Past Surgical History: Heart Catheterization With Stent, Orthopedic Surgery Additional Past Surgical History / Comment(s): one cardiac stent, rotator cuff left shoulder, edie carpal tunnel, rt femoral-popliteal bypass with 2 stents 04/27, bladder sx Past Anesthesia/Blood Transfusion Reactions: No Reported Reaction Date of Last Stent Placement:: 2012 Past Psychological History: Bipolar Smoking Status: Former smoker Past Alcohol Use History: None Reported Past Drug Use History: Marijuana - Past Family History Father Family Medical History: Cancer Additional Family Medical History / Comment(s): colon,pancreatic,bladder General Exam Limitations: no limitations General appearance: alert, in no apparent distress Head exam: Present: atraumatic, normocephalic, normal inspection Eye exam: Present: normal appearance, PERRL, EOMI Pupils: Present: normal accommodation ENT exam: Present: normal exam, normal oropharynx, mucous membranes moist Neck exam: Present: normal inspection, full ROM. Absent: tenderness, lymphadenopathy Respiratory exam: Present: normal lung sounds bilaterally. Absent: respiratory distress Cardiovascular Exam: Present: regular rate, normal rhythm, normal heart sounds. Absent: systolic murmur GI/Abdominal exam: Present: soft. Absent: tenderness (No tenderness over the bladder) exam: Present: normal inspection (Terrazas catheter appears to be in place. No discharge around). Absent: testicular tenderness, urethral discharge Extremities exam: Present: normal inspection, full ROM Back exam: Present: normal inspection, full ROM. Absent: tenderness, CVA tenderness (R), CVA tenderness (L) Neurological exam: Present: alert, oriented X3 Psychiatric exam: Present: normal affect, normal mood Skin exam: Present: warm, dry, intact, normal color Course Vital Signs 11/10/20 16:19 Temperature 98 F Pulse Rate 77 Respiratory 18 Rate Blood Pressure 152/115 O2 Sat by Pulse 96 Oximetry Medical Decision Making - Medical Decision Making 52-year-old male presents to emergency with chief complaint of Terrazas malfunction. On Physical examination, the Terrazas appears to be draining well. We did flush her multiple times here and a flush completely normal. Bladder scan revealed minimal urine. Patient will follow-up with urologist tomorrow. Return parameters were discussed with patient was understanding and agreeable. Case discussed with physician. Disposition Clinical Impression: Malfunction of Terrazas catheter Disposition: HOME SELF-CARE Condition: Stable Instructions (If sedation given, give patient instructions): Terrazas Catheter Placement and Care (ED) Additional Instructions: Follow-up with urologist. Return to emergency department if symptoms worsen. Is patient prescribed a controlled substance at d/c from ED?: No Referrals: Cory Duke MD [Primary Care Provider] - 1-2 days Time of Disposition: 17:38
== END 2020-11-10 17:51 | disposition home or self-care (01) ==
LOC: EC 15:57
DX: T83.011A Breakdown (mechanical) of indwelling urethral catheter, initial encounter (principal); J44.9 Chronic obstructive pulmonary disease, unspecified; M19.90 Unspecified osteoarthritis, unspecified site; I10 Essential (primary) hypertension; I25.2 Old myocardial infarction; E78.5 Hyperlipidemia, unspecified; Z87.891 Personal history of nicotine dependence; Z79.899 Other long term (current) drug therapy; Z79.82 Long term (current) use of aspirin; Z86.73 Personal history of transient ischemic attack (TIA), and cerebral infarction without residual deficits; Z86.718 Personal history of other venous thrombosis and embolism
CPT/HCPCS: 99283

== ENCOUNTER → 2020-11-29 | Outpatient (CLI) | payer MEDICARE, OTHER ==
[2020-11-29 11:25] LABS: Basophils # (A) 0.1 k/uL (0-0.2); Basophils % (A) 1 %; Eosinophils # (A) 0.5 k/uL (0-0.7); Eosinophils % (A) 6 %; HCT 39.9 % (39.0-53.0); HGB 13.5 gm/dL (13.0-17.5); Lymphocytes % (A) 23 %; MCH 30.6 pg (25.0-35.0); MCHC 33.9 g/dL (31.0-37.0); MCV 90.4 fL (80.0-100.0); Mean Platelet Volume 6.9; Monocytes # (A) 0.5 k/uL (0-1.0); Monocytes % (A) 6 %; Neutrophils # (A) 5.7 k/uL (1.3-7.7); Neutrophils % (A) 63 %; Platelet Count 237 k/uL (150-450); RBC 4.41 m/uL (4.30-5.90); RDW 13.9 % (11.5-15.5); WBC 8.9 k/uL (3.8-10.6)
[2020-11-29 11:27] LABS: Calcium 8.8 mg/dL (8.4-10.2); Potassium 4.4 mmol/L (3.5-5.1)
== END | disposition home or self-care (01) ==
LOC: LABPAT 10:42
PROVIDERS: ATTEND Urology
DX: Z01.812 Encounter for preprocedural laboratory examination (principal); C67.9 Malignant neoplasm of bladder, unspecified
CPT/HCPCS: 36415; 80048; 85025; 87086

== ENCOUNTER → 2020-12-07 | Day surgery (SDC) | payer MEDICARE, OTHER ==
[2020-12-01 08:42] VITALS: BMI 38.3
--- NOTE | 2020-12-02 08:41 | P.GSHP ---
History of Present Illness H&P Date: 12/02/20 Chief Complaint: Bladder cancer The patient is a 60-year-old white male with an unremarkable urologic history who underwent evaluation for gross hematuria. He was experiencing back pain and passed clots. The patient's father was diagnosed with bladder cancer within the past year. CT scan showed bilateral small renal cysts. Cystoscopy showed multiple tumors, and he underwent resection on November 09, revealing T1 grade 3 urothelial carcinoma with involvement of the prostatic urethra. A 3 cm tumor arose from the bladder dome, and additional small tumors involved the left lateral bladder wall, posterior bladder wall, and bladder trigone. He now comes for repeat resection and TURP. - Constitutional Constitutional: Reports poor appetite - Cardiovascular Cardiovascular: Reports high blood pressure - Genitourinary (Male) Genitourinary: Reports hematuria Past Medical History Past Medical History: Cancer, Chest Pain / Angina, COPD, CVA/TIA, Deep Vein Thrombosis (DVT), Hyperlipidemia, Hypertension, Myocardial Infarction (ME), Osteoarthritis (OA), Skin Disorder, Sleep Apnea/CPAP/BIPAP, Vascular Disorder Additional Past Medical History / Comment(s): TIA 2007(diff spelling words since), no cpap used eczema, decreased kidney function in past-now resolved per pt Last Myocardial Infarction Date:: 2012 History of Any Multi-Drug Resistant Organisms: None Reported Past Surgical History: Heart Catheterization With Stent, Orthopedic Surgery Additional Past Surgical History / Comment(s): one cardiac stent, rotator cuff left shoulder, edie carpal tunnel, rt femoral-popliteal bypass with 2 stents 04/27, bladder sx Past Anesthesia/Blood Transfusion Reactions: No Reported Reaction Date of Last Stent Placement:: 2012 Smoking Status: Former smoker - Past Family History Father Family Medical History: Cancer Additional Family Medical History / Comment(s): colon,pancreatic,bladder Medications and Allergies Home Medications Medication Instructions Recorded Confirmed Type Atorvastatin Calcium [Lipitor] 80 mg PO HS 12/03/17 12/01/20 History buPROPion HCL [Wellbutrin XL] 150 mg PO DAILY 12/03/17 12/01/20 History Nitroglycerin Sl Tabs [Nitrostat] 0.4 mg SUBLINGUAL Q5M PRN #25 tab 05/23/18 12/01/20 Rx HYDROcodone/APAP 10-325MG [[place] 1 tab PO Q4HR PRN 03/11/19 12/01/20 History 10-325] Ergocalciferol (Vitamin D2) 50,000 unit PO Q30D 04/04/20 12/01/20 History [Vitamin D2 (50,000 Iu)] Pantoprazole Sodium [Protonix] 40 mg PO DAILY 04/04/20 12/01/20 History carvediloL [Coreg] 12.5 mg PO BID-W/MEALS 04/04/20 12/01/20 History Sacubitril/Valsartan [Entresto 24 1 each PO BID 04/17/20 12/01/20 History mg-26 mg Tablet] Clopidogrel [Plavix] 75 mg PO DAILY #90 tab 04/28/20 12/01/20 Rx Aspirin [Adult Low Dose Aspirin EC] 81 mg PO DAILY 11/06/20 12/01/20 History Dicyclomine HCl 10 mg PO TID 11/06/20 12/01/20 History amLODIPine BESYLATE 10 mg PO DAILY 11/06/20 12/01/20 History Allergies Allergy/AdvReac Type Severity Reaction Status Date / Time No Known Allergies Allergy Verified 12/01/20 08:32 Surgical - Exam - General well developed, well nourished, no distress - Respiratory normal respiratory effort - Abdomen Abdomen: soft, non tender, no guarding, no rigid, no rebound Hernia: inguinal - Genitourinary normal penis with no external lesions, testicles non-tender - Psychiatric oriented to time, oriented to person, oriented to place, speech is normal, memory intact Assessment and Plan (1) Malignant neoplasm of bladder, unspecified Status: Acute Code(s): C67.9 - MALIGNANT NEOPLASM OF BLADDER, UNSPECIFIED SNOMED Code(s): 656762698 Plan: Cystoscopy, transurethral resection of bladder tumors, TURP. The procedure has been reviewed in detail with the patient, including the rationale and potential risks.
[~2020-12-07] MED LIST changes: +GLYCOPYRROLATE 0.2 MG/ML 2 ML VIAL ONE; +HYDROmorphone (PF) 1 MG/ML ONE; +LACTATED RINGERS 1,000 ML IV ONE; +LIDOCAINE 1% INJ 10MG/ML (20 ML MDV) ONE; +MIDAZOLAM 2 MG/2 ML VIAL IV PRN; +MIDAZOLAM 2 MG/2 ML VIAL ONE; +NEOSTIGMINE 1 MG/ML 10 ML VIAL ONE; +PROPOFOL 10 MG/ML 20 ML VIAL IV ONE; +ROCURONIUM 10 MG/ML (5 ML VIAL) IV ONE; +SUCCINYLCHOLINE CHLORIDE VIAL 200 MG/10 ML VIAL IV ONE; +ePHEDrine SULFATE/0.9% NACL/PF 50 MG/5 ML SYRINGE IV ONE; +fentaNYL (PF) 50 MCG/ML 2 ML AMP IV PRN; +fentaNYL (PF) 50 MCG/ML 2 ML AMP ONE
[2020-12-07] MEDS: HYDROmorphone 0.5 MG/0.5 ML SYRINGE IVP PRN ×2 (13:22→13:29)
[2020-12-07 13:32] VITALS: TEMP 98.1
[2020-12-07 13:42] VITALS: RESP 18
[2020-12-07 14:50] VITALS: BP 149/89; PULSE 65
--- NOTE | 2020-12-25 17:31 | P.OP ---
Date of Procedure: 12/07/20 Preoperative Diagnosis: Urothelial carcinoma of the bladder Postoperative Diagnosis: Same Procedure(s) Performed: Cystoscopy, TURBT (large), limited transurethral resection of prostate (TURP) Anesthesia: CADE Surgeon: Slick Reinoso Estimated Blood Loss (ml): 20 IV fluids (ml): 800 Pathology: other (Bladder tissue, prostate tissue.) Condition: stable Disposition: PACU Indications for Procedure: The patient is a 60-year-old white male with an unremarkable urologic history who underwent evaluation for gross hematuria. He was experiencing back pain and passed clots. The patient's father was diagnosed with bladder cancer within the past year. CT scan showed bilateral small renal cysts. Cystoscopy showed multiple tumors, and he underwent resection on November 09, revealing T1 grade 3 urothelial carcinoma with involvement of the prostatic urethra. A 3 cm tumor arose from the bladder dome, and additional small tumors involved the left lateral bladder wall, posterior bladder wall, and bladder trigone. He now comes for repeat resection and TURP. Operative Findings: Inflammation of prior resection sites. Description of Procedure: The patient was taken in the operating room and placed in the dorsal lithotomy position, with his legs supported in Kendrick stirrups. The external genitalia was prepped and draped sterilely. The Caden urethrotome was used to incise the urethra to 25-Hebrew. The 25-Hebrew ACMI resectoscope sheath was introduced into the bladder. The bladder was inspected. Inflammation was seen a prior resection sites, primarily involving the left lateral and posterior bladder allen. No tumors were seen. The entire resection bed was resected, down to the muscle. The resection bed was then fulgurated, attaining excellent hemostasis. There was no evidence of bladder perforation. The resectoscope was then used to resect the prostatic urethra, though no attempt was made to resect down to the surgical capsule. Rather, the mucosa and superficial parenchyma were resected, and again care was taken to ensure that adequate hemostasis was attained. The resected tissue was saved and sent for pathologic examination. An 18-Hebrew Terrazas catheter was inserted. The return was essentially clear. The patient tolerated the procedure well. He was taken to the recovery room in stable condition.
== END | disposition home or self-care (01) ==
LOC: OR 08:02
PROVIDERS: ATTEND Urology
DX: C67.9 Malignant neoplasm of bladder, unspecified (principal); J44.9 Chronic obstructive pulmonary disease, unspecified; I25.2 Old myocardial infarction; M19.90 Unspecified osteoarthritis, unspecified site; Z86.718 Personal history of other venous thrombosis and embolism; Z86.73 Personal history of transient ischemic attack (TIA), and cerebral infarction without residual deficits; I10 Essential (primary) hypertension; Z80.52 Family history of malignant neoplasm of bladder
CPT/HCPCS: 88305; 88307; 52601; J2250; J0330; J1100; J2710; J0690; J2405; J2001; J3010; J1170 ×2; J2704

== ENCOUNTER → 2021-08-07 | Outpatient (CLI) | payer MEDICARE, OTHER ==
--- NOTE | 2021-08-07 12:44 | US ---
EXAMINATION TYPE: US kidneys/renal and bladder DATE OF EXAM: 08/07/2021 COMPARISON: CTA February 22, 2019 CLINICAL HISTORY: C67.9 BLADDER CA. history of bladder cancer EXAM MEASUREMENTS: Right Kidney: 10.2 x 5.2 x 4.4 cm Left Kidney: 11.4 x 5.5 x 4.2 cm Right Kidney: cystic area = 1.1cm Left Kidney: no evidence of hydronephrosis Bladder: appears wnl Bilateral Jets seen: no There is no evidence for hydronephrosis at this point in time. No nephrolithiasis is seen. Incidenta l 1.1 cm benign-appearing thin-walled cyst mid pole of the right kidney outer cortex. The urinary bl adder is adequately distended. Bilateral ureteral jets are not seen. Possible small diverticula barb g the left margin of the bladder on images saved not marked by technologist. IMPRESSION: No suspicious recurrent mass in the bladder. No hydronephrosis seen bilaterally.
== END | disposition home or self-care (01) ==
LOC: RADUSWWP 12:08
PROVIDERS: ATTEND Urology
DX: C67.9 Malignant neoplasm of bladder, unspecified (principal)
CPT/HCPCS: 76770

== ENCOUNTER → 2022-04-11 | Day surgery (SDC) | payer MEDICARE, OTHER ==
[2022-04-08 10:43] VITALS: BMI 33.5
[~2022-04-11] MED LIST changes: +ALPRAZolam 0.25 MG TAB PO PRN; +ALPRAZolam 0.5 MG TAB PO PRN; +ASPIRIN 325 MG TAB PO ONE; +ATORVASTATIN 80 MG TAB PO ONE; -DEXAMETHASONE SOD PHOSPHATE 4 MG/ML 1 ML VIAL IV ONE; -GLYCOPYRROLATE 0.2 MG/ML 2 ML VIAL ONE; +HEPARIN SODIUM,PORCINE 10,000 UNIT in SODIUM CHLORIDE 0.9% 1,000 ML IRRIGATION PRN; +HEPARIN SODIUM,PORCINE 2,500 UNIT in SODIUM CHLORIDE 0.9% 250 ML IRRIGATION PRN; -HYDROmorphone (PF) 1 MG/ML ONE; +IOPAMIDOL-370 125ML BTL INJ ONE; -LACTATED RINGERS 1,000 ML IV ONE; -LACTATED RINGERS 1,000 ML IV SCH; -LIDOCAINE 1% (10MG/ML) FOR IV START INTRADERMA PRN; -LIDOCAINE 1% INJ 10MG/ML (20 ML MDV) ONE; +LIDOCAINE 1% INJ 10MG/ML (30 ML VIAL-PF) SQ ONE; +LIDOCAINE 1% INJ 10MG/ML (5 ML VIAL-PF) SQ ONE; +MIDAZOLAM 2 MG/2 ML VIAL IV ONE; -MIDAZOLAM 2 MG/2 ML VIAL IV PRN; -MIDAZOLAM 2 MG/2 ML VIAL ONE; -NEOSTIGMINE 1 MG/ML 10 ML VIAL ONE; +NITROGLYCERIN SL TABS 0.4 MG TAB SUBLINGUAL PRN; -ONDANSETRON 4 MG/2 ML VIAL IVP ONE; -PROPOFOL 10 MG/ML 20 ML VIAL IV ONE; -ROCURONIUM 10 MG/ML (5 ML VIAL) IV ONE; +RX INFO: IV CONTRAST WAS GIVEN 1 EACH MISC MISCELLANE PRN; +SODIUM CHLORIDE 0.9% 1,000 ML IV SCH; +SODIUM CHLORIDE 0.9% 1,000 ML in EMPTY BAG 1 BAG IV ONE; -SUCCINYLCHOLINE CHLORIDE VIAL 200 MG/10 ML VIAL IV ONE; +VERAPAMIL SYRINGE (5 MG/10 ML) INTRAARTER ONE; -ePHEDrine SULFATE/0.9% NACL/PF 50 MG/5 ML SYRINGE IV ONE; -fentaNYL (PF) 50 MCG/ML 2 ML AMP IV PRN; -fentaNYL (PF) 50 MCG/ML 2 ML AMP ONE
[2022-04-11 06:33] VITALS: TEMP 97.7
--- NOTE | 2022-04-11 08:03 | P.PCN ---
Date of Procedure: 04/11/22 Operative Findings: CARDIAC CATHETERIZATION PERFORMING PHYSICIAN: Torsten Kilpatrick MD, RPVI PROCEDURE PERFORMED: 1. Selective right and left coronary angiogram 2. Left heart catheterization INDICATION: This is a 61-year-old gentleman with coronary artery disease and prior stenting of the LCx as well as lower extremities PAD as well as hypertension and dyslipidemia who was seen in the office recently for chest discomfort and left arm discomfort with exertion. He underwent myocardial perfusion imaging stress test and that came in to be abnormal showing an anterior ischemia. In the light of that a heart catheterization was advised COMPLICATION: None APPROACH: Right radial artery LEVEL OF SEDATION: Moderate with a sedation length of 21 minutes PROCEDURE DESCRIPTION: After obtaining an informed consent, the patient was brought to cardiac labor relations worker. Local anesthesia was performed using lidocaine subcutaneously. The right radial artery was cannulated using Seldinger technique, the guidewire passed easily, following that we advanced a 5-Bahraini sheath dilator assembly, the wire and dilator were removed and sheath was flushed. Following that, 2 mg of verapamil along with 5000 unit heparin were given. Selective right and left coronary angiogram using a 6-Bahraini JR4 and JL 3.5 catheters. Following that we did left heart catheterization using 6-Bahraini pigtail catheter. The procedure was completed there was no complication. SELECTIVE CORONARY ANGIOGRAM: The right coronary artery: Large caliber vessel and a dominant vessel. The RCA is chronically occluded. It fills by ipsilateral and contralateral collaterals. Left main: Large caliber vessel. Has mild disease only. Bifurcates into an LCx and LAD The left circumflex: Large caliber vessel. Nondominant vessel. The proximal LCx is angiographically normal. It gives rises into a large OM which work as ramus intermedius and has mild to moderate disease only. The circumflex in the midportion is a stented and the stent is patent. After that the left circumflex becomes small caliber vessel. The left anterior descending artery: Large caliber vessel. The LAD has mild disease only. It gives rises into a large diagonal branch which bifurcates into 2 subbranches and the LAD has only mild diffuse disease HEMODYNAMICS: The LVEDP was 8 mmHg was no significant gradient across aortic valve CONCLUSION: 1. Chronic total occlusion of the RCA which fills by ipsilateral and contralateral collaterals. This is a known finding from before 2. Patent stent in the mid to distal LCx. He LCx distal to the stent becomes small caliber vessel. 3. Normal left sided filling pressure POSTPROCEDURE MANAGEMENT: Maximize medical treatment Consider PCI of SCREENING TECHNICIAN of the RCA the patient's remains symptomatic
[2022-04-11 10:08] VITALS: RESP 16
[2022-04-11 11:56] VITALS: BP 136/79; PULSE 50
== END ==
LOC: CATHCVL 05:54
PROVIDERS: ATTEND Internal Medicine Interventional Cardiology
DX: I25.10 Atherosclerotic heart disease of native coronary artery without angina pectoris (principal); Z95.5 Presence of coronary angioplasty implant and graft; I25.82 Chronic total occlusion of coronary artery; E78.5 Hyperlipidemia, unspecified; I12.9 Hypertensive chronic kidney disease with stage 1 through stage 4 chronic kidney disease, or unspecified chronic kidney disease; N18.9 Chronic kidney disease, unspecified; I73.9 Peripheral vascular disease, unspecified; I99.8 Other disorder of circulatory system; I25.5 Ischemic cardiomyopathy; Z98.62 Peripheral vascular angioplasty status; Z79.02 Long term (current) use of antithrombotics/antiplatelets; Z79.891 Long term (current) use of opiate analgesic; Z79.83 Long term (current) use of bisphosphonates; Z79.899 Other long term (current) drug therapy; Z79.52 Long term (current) use of systemic steroids; Z79.810 Long term (current) use of selective estrogen receptor modulators (SERMs); F17.200 Nicotine dependence, unspecified, uncomplicated
CPT/HCPCS: 93458; C1769; C1894; J2250; J2001; J1644; Q9967

== ENCOUNTER 2023-07-26 21:26 | Emergency (ER) | payer MEDICARE, OTHER ==
[2023-07-26 22:22] VITALS: TEMP 98.7
[2023-07-26 22:36] LABS: Basophils # (A) 0.1 k/uL (0-0.2); Basophils % (A) 1 %; Eosinophils # (A) 0.5 k/uL (0-0.7); Eosinophils % (A) 4 %; HCT 41.1 % (39.0-53.0); HGB 13.4 gm/dL (13.0-17.5); Lymphocytes % (A) 8 %; MCH 29.8 pg (25.0-35.0); MCHC 32.6 g/dL (31.0-37.0); MCV 91.4 fL (80.0-100.0); Mean Platelet Volume 7.5; Monocytes # (A) 0.9 k/uL (0-1.0); Monocytes % (A) 8 %; Neutrophils % (A) 79 %; Platelet Count 220 k/uL (150-450); RDW 13.1 % (11.5-15.5); WBC 12.6 k/uL (3.8-10.6)
[2023-07-26 22:43] LABS: Appearance,Urine Cloudy (Clear); Bilirubin,Urine Negative (Negative); Blood,Urine Large (Negative); Color,Urine Light Red; Glucose,Urine (UA) Negative (Negative); Hyaline Casts,Urine 51 /lpf (0-2); Ketones,Urine 1+ (Negative); Leukocyte Esterase,Urine Large (Negative); Mucus,Urine Rare /hpf; Nitrite,Urine Negative (Negative); Protein,Urine 2+ (Negative); RBC,Urine >182 /hpf (0-5); Specific Gravity,Urine 1.019 (1.001-1.035); Urobilinogen,Urine <2.0 mg/dL (<2.0); WBC,Urine >182 /hpf (0-5)
[2023-07-26 22:52] LABS: ALT 19 U/L (4-49); AST 28 U/L (17-59); African American GFR (CKD) 57 (>60 ml/min/1.73 sqM); Alkaline Phosphatase 63 U/L (38-126); Anion Gap 9 mmol/L; Blood Urea Nitrogen 25 mg/dL (9-20); Calcium 8.7 mg/dL (8.4-10.2); Carbon Dioxide 23 mmol/L (22-30); Chloride 103 mmol/L (98-107); Glucose 114 mg/dL (74-99); Non-African American GFR(CKD) 49 (>60 ml/min/1.73 sqM); Sodium 135 mmol/L (137-145); Total Bilirubin 1.3 mg/dL (0.2-1.3); Total Protein 6.8 g/dL (6.3-8.2)
--- NOTE | 2023-07-27 00:01 | US ---
EXAM: US Scrotum CLINICAL HISTORY: US Reason: scrotal swelling TECHNIQUE: Real-time ultrasound of the scrotum with color Doppler and image documentation. COMPARISON: No relevant prior studies available. FINDINGS: Right testicle: The right testicle measures 4.5 x 2.9 x 2.5 cm, 6.5 mL with normal echotexture and normal Doppler blood flow. No torsion. Left testicle: The left testicle measures 4 x 2.2 x 2.7 cm, 12.1 mL with normal echotexture and normal Doppler blood flow. No torsion. Epididymides: The right epididymal head measures 1.4 cm. The left epididymal head measures 1.2 cm. Scrotum: Trace bilateral hydroceles. Soft tissues: There is mild diffuse scrotal soft tissue swelling. No subcutaneous emphysema or abscess is seen. IMPRESSION: There is mild diffuse scrotal soft tissue swelling. This is nonspecific. No subcutaneous emphysema or abscess is seen. No evidence of torsion, hernia, or varicocele.
[2023-07-27 00:34] VITALS: RESP 18
[2023-07-27 01:29] VITALS: PULSE 77
--- NOTE | 2023-07-27 01:37 | CT ---
EXAM: CT Abdomen and Pelvis Without Intravenous Contrast CLINICAL HISTORY: CT Reason: s/p ureterectomy scrotal swelling TECHNIQUE: Axial computed tomography images of the abdomen and pelvis without intravenous contrast. CTDI is 20.1 mGy and DLP is 1526.5 mGy-cm. This CT exam was performed using one or more of the following dose reduction techniques: automated exposure control, adjustment of the mA and/or kV according to patient size, and/or use of iterative reconstruction technique. COMPARISON: October 29, 2022 FINDINGS: Lung bases: Unremarkable. No mass. No consolidation. ABDOMEN: Liver: Unremarkable. Gallbladder and bile ducts: Unremarkable. No calcified stones. No ductal dilation. Pancreas: Unremarkable. No ductal dilation. Spleen: Unremarkable. No splenomegaly. Adrenals: Unremarkable. No mass. Kidneys and ureters: Unremarkable. No obstructing stones. No hydronephrosis. Stomach and bowel: See below. PELVIS: Appendix: The appendix is normal. Bowel loops are nondilated. There is mild diverticulosis of the sigmoid colon. No acute inflammatory changes are seen involving the bowel. Bladder: Unremarkable. No stones. Reproductive: Unremarkable as visualized. ABDOMEN and PELVIS: Intraperitoneal space: Unremarkable. No free air. No significant fluid collection. Bones/joints: Mild degenerative changes throughout the spine. No acute fracture or subluxation is seen. Soft tissues: Scattered gas bubbles within the left and anterior abdominal and pelvic wall consistent with recent surgery. Small bilateral inguinal hernias containing fat and measuring 1.5 cm in diameter. These contain a trace amount of gas and fluid. Previous small bilateral hydroceles. Vasculature: Partial visualization of a metallic stent in the right superficial femoral artery. The abdominal aorta is mildly calcified but nondilated. This is a noncontrast study. Lymph nodes: Unremarkable. No enlarged lymph nodes. Tubes, lines and devices: There is a left-sided double-J ureteral stent in standard position. There is edema surrounding the distal ureter and the completely decompressed urinary bladder consistent with recent surgery. No focal abnormal fluid collection is seen. IMPRESSION: 1. Small bilateral inguinal hernias containing fat and measuring 1.5 cm in diameter. These contain a trace amount of gas and fluid. Previous small bilateral hydroceles. 2. There is a left-sided double-J ureteral stent in standard position. There is edema surrounding the distal ureter and the completely decompressed urinary bladder consistent with recent surgery. No focal abnormal fluid collection is seen. 3. The appendix is normal. Bowel loops are nondilated. There is mild diverticulosis of the sigmoid colon. No acute inflammatory changes are seen involving the bowel.
--- NOTE | 2023-07-27 02:26 | ED ---
General Adult HPI - General Chief complaint: Urogenital Stated complaint: Post-Op Complications, Swollen Testicles Source: patient Mode of arrival: ambulatory Limitations: no limitations - History of Present Illness Initial comments: 63-year-old male with a history of cancer who had a distal ureterectomy w vielka kuhn cystoscopy and istillation of gemcitabine performed by Dr. Bernardo Munguia of Urology at [facility] yesterday presenting to the ED with complaints of scrotal swelling. Patient reports that he was getting ready to go to bed tonight when he noticed that his scrotum bilaterally was more swollen than usual. Otherwise denies pain. Has a Terrazas catheter in place and is unsure of any urinary changes. No abdominal pain. No fever or chills. No other complaints at this time. - Related Data Home Medications Medication Instructions Recorded Confirmed Atorvastatin Calcium [Lipitor] 80 mg PO HS 12/03/17 04/11/22 buPROPion HCL [Wellbutrin XL] 150 mg PO DAILY 12/03/17 04/11/22 HYDROcodone/APAP 10-325MG [Gheens 1 tab PO BID PRN 03/11/19 04/11/22 10-325] Ergocalciferol (Vitamin D2) 50,000 unit PO Q30D 04/04/20 04/11/22 [Vitamin D2 (50,000 Iu)] Pantoprazole Sodium [Protonix] 40 mg PO DAILY 04/04/20 04/11/22 carvediloL [Coreg] 12.5 mg PO BID-W/MEALS 04/04/20 04/11/22 Sacubitril/Valsartan [Entresto 24 1 each PO BID 04/17/20 04/11/22 mg-26 mg Tablet] Aspirin [Adult Low Dose Aspirin EC] 81 mg PO DAILY 11/06/20 04/11/22 ALPRAZolam [Xanax] 0.25 mg PO BID PRN 04/08/22 04/11/22 Previous Rx's Medication Instructions Recorded Nitroglycerin Sl Tabs [Nitrostat] 0.4 mg SUBLINGUAL Q5M PRN #25 tab 05/23/18 Clopidogrel [Plavix] 75 mg PO DAILY #90 tab 04/28/20 Allergies Allergy/AdvReac Type Severity Reaction Status Date / Time No Known Allergies Allergy Verified 04/20/24 21:46 Review of Systems ROS Statement: Those systems with pertinent positive or pertinent negative responses have been documented in the HPI. ROS Other: All systems not noted in ROS Statement are negative. Past Medical History Past Medical History: Coronary Artery Disease (CAD), Cancer, Chest Pain / Angina, COPD, CVA/TIA, Deep Vein Thrombosis (DVT), Hyperlipidemia, Hypertension, Myocardial Infarction (SD), Osteoarthritis (OA), Skin Disorder, Sleep Apnea/CPAP/BIPAP, Vascular Disorder Additional Past Medical History / Comment(s): TIA 2007 diff spelling words since & states generalized weakness., sleep apnea-no machine., decreased kidney function . SD x2., bladder cancer 2021 with surgery and chemo (last chemo february 2022)., PAD., See Cardiology H & P Last Myocardial Infarction Date:: 2012 History of Any Multi-Drug Resistant Organisms: None Reported Past Surgical History: Bladder Surgery, Heart Catheterization, Heart Catheterization With Stent, Orthopedic Surgery Additional Past Surgical History / Comment(s): Heart cath 2012 with stent and 2018., rotator cuff left shoulder, edie carpal tunnel, rt femoral-popliteal bypass with 2 stents 04/27, bladder sx's for cancer. Past Anesthesia/Blood Transfusion Reactions: No Reported Reaction Date of Last Stent Placement:: 2012 Past Psychological History: Anxiety, Bipolar Smoking Status: Former smoker Past Alcohol Use History: None Reported Past Drug Use History: Marijuana - Past Family History Father Family Medical History: Cancer Additional Family Medical History / Comment(s): Lung, colon,pancreatic,bladder cancer Mother Additional Family Medical History / Comment(s): kidney failure General Exam Limitations: no limitations Course Vital Signs 07/26/23 07/26/23 07/27/23 21:44 23:38 00:58 Temperature 98.7 F Pulse Rate 109 H 79 77 Respiratory 20 18 18 Rate Blood Pressure 166/94 152/84 140/81 O2 Sat by Pulse 95 96 94 L Oximetry 07/27/23 07/27/23 01:00 02:14 Temperature Pulse Rate 76 77 Respiratory 18 18 Rate Blood Pressure 112/73 135/80 O2 Sat by Pulse 94 L 95 Oximetry Medical Decision Making - Medical Decision Making Was pt. sent in by a medical professional or institution (, PA, BINDING STITCHER, urgent care, hospital, or detention...) When possible be specific @ -No Did you speak to anyone other than the patient for history (EMS, parent, family, police, friend...)? What history was obtained from this source @ -No Did you review nursing and triage notes (agree or disagree)? Why? @ -I reviewed and agree with nursing and triage notes Were old charts reviewed (outside hosp., previous admission, EMS record, old EKG, old radiological studies, urgent care reports/EKG's, detention records)? Report findings @ -Yes reviewed discharge paperwork which showed blood procedure patient had performed yesterday. For further details please see HPI. Differential Diagnosis (chest pain, altered mental status, abdominal pain women, abdominal pain men, vaginal bleeding, weakness, fever, dyspnea, syncope, headache, dizziness, GI bleed, back pain, seizure, CVA, palpatations, mental health, musculoskeletal)? @ -Differential Abdominal Pain Men: Appendicitis, cholecystitis, diverticulosis, ischemic bowel, pancreatitis, hepatitis, UTI, gastroenteritis, AAA, incarcerated hernia, bowel obstruction, constipation, inflammatory bowel, hepatitis, peptic ulcer disease, splenic infarction, perforated viscus, testicular torsion, this is not meant to be an all-inclusive list EKG interpreted by me (3pts min.). @ -As above X-rays interpreted by me (1pt min.). @ -None done CT interpreted by me (1pt min.). @ -CT abdomen pelvis interpreted me showing small bilateral inguinal hernias measuring 1.5 cm in diameter, left-sided double-J ureteral stent and stent position without focal abnormal fluid collection. No other findings. U/S interpreted by me (1pt. min.). @ -Ultrasound interpreted me showing mild diffuse scrotal soft tissue swelling, nonspecific. No subcutaneous emphysema or abscess. No evidence of torsion, hernia, or varicocele. What testing was considered but not performed or refused? (CT, X-rays, U/S, labs)? Why? @ -None What meds were considered but not given or refused? Why? @ -None Did you discuss the management of the patient with other professionals (professionals i.e. , PA, BINDING STITCHER, lab, RT, psych nurse, social work case manager, process line operator, teacher, chief revenue officer, case therapist)? Give summary @ -No Was smoking cessation discussed for >3mins.? @ -No Was critical care preformed (if so, how long)? @ -No Were there social determinants of health that impacted care today? How? (Homelessness, low income, unemployed, alcoholism, drug addiction, transport ation, low edu. Level, literacy, decrease access to med. care, [facility], rehab)? @ -No Was there de-escalation of care discussed even if they declined (Discuss DNR or withdrawal of care, Hospice)? DNR status @ -No What co-morbidities impacted this encounter? (DM, HTN, Smoking, COPD, CAD, Cancer, CVA, ARF, Chemo, Hep., AIDS, mental health diagnosis, sleep apnea, morbid obesity)? @ -Cancer Was patient admitted / discharged? Hospital course, mention meds given and route, prescriptions, significant lab abnormalities, going to OR and other pertinent info. @ -Discharge 63-year-old male presented to the ED with complaints of scrotal swelling. Had distal ureterectomy and instillation of gencitabine performed yesterday at [facility]. States tonight when he went to bed noted some scrotal swelling. No pain with this. No other complaints at this time. Laboratory studies reviewed. Does show slight elevation white blood cell count at 12. Chemistry panel shows a slight elevation of the BUN and creatinine however improved from baseline. UA does show findings concerning with infection however patient is currently on Bactrim. Imaging studies reviewed and are largely nonspecific without acute findings. Discharged home in stable condition and advised to continue taking antibiotics as prescribed. Advise close follow-up with his urologist. Provided discs of his ultrasound and CT for follow-up. Discussed return precautions with patient who verbalized agreement. Undiagnosed new problem with uncertain prognosis? @ -No Drug Therapy requiring intensive monitoring for toxicity (Heparin, Nitro, Insulin, Cardizem)? @ -No Were any procedures done? @ -No Diagnosis/symptom? @ -Scrotal swelling Acute, or Chronic, or Acute on Chronic? @ -Acute Uncomplicated (without systemic symptoms) or Complicated (systemic symptoms)? @ -Uncomplicated Side effects of treatment? @ -No Exacerbation, Progression, or Severe Exacerbation? @ -No Poses a threat to life or bodily function? How? (Chest pain, USA, SD, pneumonia, PE, COPD, DKA, ARF, appy, cholecystitis, CVA, Diverticulitis, Homicidal, Suicidal, threat to staff... and all critical care pts) @ -No - Lab Data Result diagrams: 07/26/23:18 07/26/23 22:18 Lab Results 07/26/23 07/26/23 07/26/23 Range/Units 22:18 22:18 22:18 WBC 12.6 H (3.8-10.6) k/uL RBC 4.50 (4.30-5.90) m/uL Hgb 13.4 (13.0-17.5) gm/dL Hct 41.1 (39.0-53.0) % MCV 91.4 (80.0-100.0) fL MCH 29.8 (25.0-35.0) pg MCHC 32.6 (31.0-37.0) g/dL RDW 13.1 (11.5-15.5) % Plt Count 220 (150-450) k/uL MPV 7.5 Neutrophils % 79 % Lymphocytes % 8 % Monocytes % 8 % Eosinophils % 4 % Basophils % 1 % Neutrophils # 10.0 H (1.3-7.7) k/uL Lymphocytes # 1.0 (1.0-4.8) k/uL Monocytes # 0.9 (0-1.0) k/uL Eosinophils # 0.5 (0-0.7) k/uL Basophils # 0.1 (0-0.2) k/uL Sodium 135 L (137-145) mmol/L Potassium 4.0 (3.5-5.1) mmol/L Chloride 103 (98-107) mmol/L Carbon Dioxide 23 (22-30) mmol/L Anion Gap 9 mmol/L BUN 25 H (9-20) mg/dL Creatinine 1.52 H (0.66-1.25) mg/dL Est GFR (CKD-EPI)AfAm 57 (>60 ml/min/1.73 sqM) Est GFR (CKD-EPI)NonAf 49 (>60 ml/min/1.73 sqM) Glucose 114 H (74-99) mg/dL Calcium 8.7 (8.4-10.2) mg/dL Total Bilirubin 1.3 (0.2-1.3) mg/dL AST 28 (17-59) U/L ALT 19 (4-49) U/L Alkaline Phosphatase 63 (38-126) U/L Total Protein 6.8 (6.3-8.2) g/dL Albumin 4.0 (3.5-5.0) g/dL Urine Color Light Red Urine Appearance Cloudy (Clear) Urine pH 6.0 (5.0-8.0) Ur Specific [place] 1.019 (1.001-1.035) Urine Protein 2+ H (Negative) Urine Glucose (UA) Negative (Negative) Urine Ketones 1+ H (Negative) Urine Blood Large H (Negative) Urine Nitrite Negative (Negative) Urine Bilirubin Negative (Negative) Urine Urobilinogen <2.0 (<2.0) mg/dL Ur Leukocyte Esterase Large H (Negative) Urine RBC >182 H (0-5) /hpf Urine WBC >182 H (0-5) /hpf Hyaline Casts 51 H (0-2) /lpf Urine Mucus Rare H (None) /hpf Disposition Clinical Impression: Scrotal swelling Disposition: HOME SELF-CARE Condition: Good Additional Instructions: Please return to the Emergency Department if symptoms worsen or any other concerns. Please follow-up with your urologist. Please take antibiotics as prescribed. Is patient prescribed a controlled substance at d/c from ED?: No Referrals: Cory Duke MD [Primary Care Provider] - 1-2 days Time of Disposition: 02:30
[2023-07-27 02:52] VITALS: BP 135/80
== END 2023-07-27 02:42 | disposition home or self-care (01) ==
LOC: EC 21:26
DX: N50.89 Other specified disorders of the male genital organs (principal); K57.30 Diverticulosis of large intestine without perforation or abscess without bleeding; K40.20 Bilateral inguinal hernia, without obstruction or gangrene, not specified as recurrent; F12.90 Cannabis use, unspecified, uncomplicated; Z87.891 Personal history of nicotine dependence
CPT/HCPCS: 36415; 74176; 76870; 80053; 81001; 85025; 93975; 99284

== ENCOUNTER → 2023-12-30 | Outpatient (CLI) | payer MEDICARE, OTHER ==
--- NOTE | 2023-12-30 13:39 | CT ---
EXAMINATION TYPE: CT abdomen pelvis wo con DATE OF EXAM: 12/30/2023 COMPARISON: 07/27/2023 HISTORY: bladder ca CT DLP: 1143 mGycm Examination of the solid and hollow viscera is limited given the lack of contrast. FINDINGS: LUNG BASES: No evidence for nodule. No evidence for infiltrate. LIVER/GB: The gallbladder is unremarkable. No space-occupying hepatic lesion. PANCREAS: No pancreatic mass identified. No inflammatory process seen. SPLEEN: No evidence for splenomegaly. No intrasplenic lesions seen. ADRENALS: No adrenal nodules identified. No evidence for thickening. KIDNEYS: No evidence for solid renal mass. Renal vascular calcifications. Small cyst left kidney. No hydronephrosis. Diminutive urinary bladder. No evidence for distinct mass. Minimal urinary bladder wa ll thickening. BOWEL: Appendix has a normal appearance. No evidence of bowel obstruction. No inflammatory process. Lymph nodes: No evidence for adenopathy greater than 1 cm. Abdominal aorta: Atheromatous changes seen. No evidence for aneurysm. Genital organs: No significant abnormality. Other: No significant abnormality. IMPRESSION: Diminutive urinary bladder. No evidence for distinct mass. Minimal urinary bladder wall thickening. [facility], , 12/30/2023 1:36 PM
== END | disposition home or self-care (01) ==
LOC: RADCTMAIN 13:12
PROVIDERS: ATTEND Urology
DX: C67.9 Malignant neoplasm of bladder, unspecified
CPT/HCPCS: 74176

== ENCOUNTER → 2024-06-30 | Outpatient (CLI) | payer MEDICARE, OTHER ==
--- NOTE | 2024-06-30 14:20 | CT ---
EXAMINATION TYPE: CT abdomen pelvis wo con DATE OF EXAM: 06/30/2024 COMPARISON: Prior CT December 30, 2023 and older CTs. CLINICAL INDICATION: Male, 64 years old with history of C67.9 bladder ca, f/u bladder ca. prior on pa cs, TECHNIQUE: CT scan of the abdomen and pelvis is performed without IV contrast, patient injected with mL of ., (n one if empty) Oral contrast used: without Oral Contrast (none if empty) CT DLP: 1454.4 mGycm, Automated exposure control for dose reduction was used. FINDINGS: LUNG BASES: Thin-walled 2.2 cm cyst centrally in the left lung on superior most axial images. Severe three-vessel coronary artery calcification is redemonstrated. LIVER/GB: No significant abnormality is appreciated. PANCREAS: No significant abnormality is seen. SPLEEN: No significant abnormality is seen. ADRENALS: No significant abnormality is seen. KIDNEYS: Some cortical thinning bilaterally greater in the right kidney is redemonstrated. No hydrone phrosis seen bilaterally. Small size bladder again seen. BOWEL: Diverticula in the sigmoid colon are redemonstrated. No abnormal small or large bowel dilatati on. PROSTATE/SEMINAL VESICLES: Enlarged prostate consistent with BPH is redemonstrated. LYMPH NODES: No greater than 1cm abdominal or pelvic lymph nodes are appreciated. OSSEOUS STRUCTURES: Multilevel spurring in the thoracolumbar spine is redemonstrated. OTHER: Small fat-containing right inguinal hernia. IMPRESSION: No obvious suspicious new mass or adenopathy given the limitation of noncontrast CT to s uggest active neoplastic recurrence. No significant change from most recent prior CT. [facility], , 06/30/2024 2:18 PM
== END | disposition home or self-care (01) ==
LOC: RADCTMAIN 10:45
PROVIDERS: ATTEND Urology
DX: C67.9 Malignant neoplasm of bladder, unspecified (principal); K40.90 Unilateral inguinal hernia, without obstruction or gangrene, not specified as recurrent; N40.0 Benign prostatic hyperplasia without lower urinary tract symptoms; K57.30 Diverticulosis of large intestine without perforation or abscess without bleeding
CPT/HCPCS: 74176